=== PATIENT | male | born 1945 | race Caucasian/White ===

== ENCOUNTER → 2017-12-23 | Outpatient (CLI) | payer MEDICARE, OTHER ==
[~2017-12-23] MED LIST: AMARYL2 MG PO; CELEBREX100 MG PO; CELEBREX200 MG PO; COREG25 MG PO; COZAAR100 MG PO; DIGOXIN250 MCG PO; FISH OIL 1,0001 EAC2 PO; FISH OIL PO; GABAPENTIN100 MG PO; GLUCOPHAGE1000 MG PO; JANUMET 50-1,01 EACH PO; JENTADUETO 2.51 EAC1; JENTADUETO 2.51 EAC1 PO; JENTADUETO 2.51 EACH PO; LANOXIN250 MC1 PO; LANOXIN250 MCG PO; LASIX40 MG PO; LOMOTIL TABLET1 EACH PO; LOSARTAN POTAS100 MG PO; MECLIZINE HCL12.5 MG PO; MELOXICAM15 MG PO; METFORMIN HCL500 MG PO; MULTI-VITAMIN1 EACH PO; MULTIVITAMIN1 EAC1 PO; NEXIUM40 MG PO; NITROGLYCERIN SL; NITROSTAT0.4 MG; NORCO 10-325 T1 EACH PO; NORCO 5-325 TA1 EACH PO; PLAVIX75 MG PO; PROMETHAZINE HC25 M1 PO; REQUIP5 MG PO; ROPINIROLE HCL3 MG PO; SPIRONOLACTONE25 MG PO; TESTOSTERO200 MG/1 M IM; ULTRAM 50MG50 MG PO; VICODIN; VICODIN ES TAB1 EACH PO; Z REQUIP PO; Z.0.BENICAR40 MG PO; Z.0.COREG25 MG PO; Z.0.FISH OIL500 M1 PO; Z.0.GLIPIZIDE5 MG PO; Z.0.GLUCOPHAGE500 MG; Z.0.KLOR-CON 88 MEQ PO; Z.0.LASIX40 MG PO; Z.0.NEXIUM40 MG PO; Z.0.PLAVIX75 MG PO; Z.0.PROMETHAZINE HC2 PO; Z.0.SPIRONOLACTONE25 PO; Z.0.ZOCOR80 MG PO; Z.1.MECLIZINE HCL25 PO; Z.2.METFORMIN HCL500 PO; ZOCOR80 MG PO; [UNRECOGNIZED DRUG - OTHER]
--- NOTE | 2017-12-24 06:23 | Diagnostic Imaging Report ---
History: Neck pain radiating to right shoulder Comparison studies: None Technique: Axial images were obtained through the cervical region. Coronal and sagittal images reconstructed from the axial data. Intravenous contrast: None Findings: Atlantoaxial articulation: Degenerative changes given by decreased predental space, osteophyte formation and osteophytes. Alignment: Normal lordosis No scoliosis. Cervicomedullary junction: No abnormalities. Patent foramen magnum. Soft tissues: No paraspinal abnormalities. Atherosclerotic calcifications of the carotid bulbs, siphons and vertebral arteries. Vertebrae: No fractures, neoplasm or infection. Degenerative changes: C2-C3: Facet and uncinate process hypertrophy result in no significant canal stenosis and mild right foraminal narrowing . C3-4: Facet and uncinate process hypertrophy result in no significant canal stenosis, moderate right and mild left foraminal narrowing . C4-5: Decreased intervertebral space. Facet and uncinate process hypertrophy result in no significant canal stenosis, moderate right and mild left foraminal narrowing . C5-6: Obliterated intervertebral space and endplate sclerosis. Central disc osteophyte complex, facet and uncinate process hypertrophy result in no significant canal stenosis, severe right and moderate left foraminal narrowing . C6-7: Obliterated intervertebral space and endplate sclerosis. Central disc osteophyte complex, facet and uncinate process hypertrophy result in mild canal stenosis, moderate right and mild left foraminal narrowing . C7-T1: Patent spinal canal and foramina . IMPRESSION: 1. Severe right and moderate left degenerative foraminal narrowing at C5-6. 2. Moderate right and mild left foraminal narrowing at C3-4 and C6-7. 3. Disc degeneration more significant at C5-6 and C6-7. Other degenerative changes as described above. Signed by: DR Deo Rhoades M.D. on 12/24/2017 6:19 AM
== END ==
LOC: CT 14:01
PROVIDERS: ATTEND Physical Medicine & Rehabilitation Pain Medicine
DX: M54.12 Radiculopathy, cervical region (principal)
CPT/HCPCS: 72125

== ENCOUNTER → 2018-01-12 | Day surgery (SDC) | payer MEDICARE, OTHER ==
[2018-01-04 11:53] LABS: BASOPHILS # (AUTO) 0.1 (0.0-0.1); BASOPHILS % 0.9 % (0.0-1.0); EOSINOPHILS # (AUTO) 0.9 (0.0-0.4); EOSINOPHILS % 7.8 % (0.0-6.0); HEMATOCRIT 36.2 % (38.2-49.6); HEMOGLOBIN 11.8 g/dL (14.0-18.0); LYMPHOCYTES # (AUTO) 1.4 (1.0-3.2); LYMPHOCYTES % 12.6 % (18.0-39.1); MEAN CORPUSCULAR HGB CONC 32.6 g/dL (31-35); MEAN CORPUSCULAR VOLUME 92.1 fL (81-99); MONOCYTES # (AUTO) 1.1 (0.2-0.8); MONOCYTES % 10.3 % (4.4-11.3); NEUTROPHILS # (AUTO) 7.4 (2.1-6.9); NEUTROPHILS % 67.9 % (38.7-80.0); PLATELET COUNT 358 x10e3/uL (140-360); RED BLOOD COUNT 3.93 x10e6/uL (4.3-5.7); RED CELL DISTRIBUTION WIDTH 13.3 % (11.7-14.4)
[~2018-01-12] MED LIST changes: +DEXAMETHASONE SOD PHOS 10 MG/1 ML VIAL ONE; +FENTANYL CITRATE/PF 100MCG/2 ML INJ ONE; +FISH OIL 1,4001 EACH PO; +IOPAMIDOL 200 MG/ML 20 ML VIAL IT ONE; +LIDOCAINE HCL 1% 30ML-PF VIAL ONE; +LIDOCAINE HCL 2% LOCAL INJ 5 ML SDV VIAL INJ ONE; +MIDAZOLAM HCL 2 MG/2 ML VIAL ONE; +PROPOFOL IV EMULSION 10 MG/ML 20 ML VIAL ONE
--- OUTSIDE RECORDS SUMMARY | 2018-01-12 05:23 | XMS REPORT ---
Author Author [facility] Address Unknown Phone Unavailable Care Team Providers Care Toolman Name Role Phone ALAN BALDERAS Unavailable Unavailable ZAMBRANO, YUDY Unavailable Unavailable Problems This patient has no known problems. Allergies, Adverse Reactions, Alerts This patient has no known allergies or adverse reactions. Medications This patient has no known medications. Results Test Description Test Time Test Comments Text Results Atomic Results Result Comments CT CERVICAL SPINE WO [facility] [address] [address] Patient Name: ELA GUTIERREZ MR #: [id number] : 1945 Age/Sex: 72/M Req #: [id number] Adm Physician: Ordered by: ALAN BALDERAS MD Report # : [id number] Location: CT Room/Bed: Procedure: [id number] CT/CT CERVICAL SPINE WO Exam Date: 12/23/17 Exam Time: 1456 REPORT STATUS: Signed History: Neck pain radiating to right shoulder Comparison studies: None Technique: Axial images were obtained through the cervical region. Coronal and sagittal images reconstructed from the axial data. Intravenous contrast: None Findings: Atlantoaxial articulation: Degenerative changes given by decreased predental space, osteophyte formation and osteophytes. Alignment: Normal lordosis No scoliosis. Cervicomedullary junction: No abnormalities. Patent foramen magnum. Soft tissues: No paraspinal abnormalities. Atherosclerotic calcifications of the carotid bulbs, siphons and vertebral arteries. Vertebrae: No fractures, neoplasm or infection. Degenerative changes: C2-C3: Facet and uncinate process hypertrophy result in no significant canal stenosis and mild right foraminal narrowing . C3-4: Facet and uncinate process hypertrophy result in no significant canal stenosis, moderate right and mild left foraminal narrowing . C4-5: Decreased intervertebral space. Facet and uncinate process hypertrophy result in no significant canal stenosis, moderate right and mild left foraminal narrowing . C5-6: Obliterated intervertebral space and endplate sclerosis. Central disc osteophyte complex, facet and uncinate process hypertrophy result in no significant canal stenosis, severe right and moderate left foraminal narrowing . C6-7: Obliterated intervertebral space and endplate sclerosis. Central disc osteophyte complex, facet and uncinate process hypertrophy result in mild canal stenosis, moderate right and mild left foraminal narrowing . C7-T1: Patent spinal canal and foramina . IMPRESSION: 1. Severe right and moderate left degenerative foraminal narrowing at C5-6. 2. Moderate right and mild left foraminal narrowing at C3-4 and C6-7. 3. Disc degeneration more significant at C5-6 and C6-7. Other degenerative changes as described above. Signed by: DR Deo Rhoades M.D. on 12/24/2017 6:19 AM Dictated By: DEO SAAVEDRA MD 8 Transcribed By: RADHA on 12/24/17618 COPY TO: ALAN BALDERAS MD [facility] [address] [address] Patient Name: ELA GUTIERREZ MR #: [id number] : 1945 Age/Sex: 71/M Req #: [id number] Adm Physician: Ordered by: YUDY ZAMBRANO MD Report #: [id number] Location: [facility] Room/Bed: Procedure: [id number] DX/SHOULDER RIGHT COMPLETE Exam Date: 09/16/17 Exam Time: 1035 REPORT STATUS: Signed PROCEDURE: X- RAY RIGHT SHOULDER, COMPLETE COMPARISON: None. INDICATIONS: RIGHT SHOULDER PAIN FINDINGS: There are no fractures, dislocations, lytic or blastic lesions. The bones are well-mineralized. The soft-tissues are unremarkable. CONCLUSION: No acute radiographic abnormality. Dictated by: Ela Azar M.D. on 09/16/2017 at 11:39 Electronically approved by: Ela Azar M.D. on 09/16/2017 at 11:39 Dictated By: ELA AZAR MD [id number] Transcribed By: TRI on 09/16/17 1139 COPY TO: YUDY ZAMBRANO MD
== END | disposition home or self-care (01) ==
LOC: OR 05:22
PROVIDERS: ATTEND Physical Medicine & Rehabilitation Pain Medicine
DX: M47.22 Other spondylosis with radiculopathy, cervical region (principal); M47.816 Spondylosis without myelopathy or radiculopathy, lumbar region; M46.1 Sacroiliitis, not elsewhere classified; M54.16 Radiculopathy, lumbar region; G89.4 Chronic pain syndrome; B02.29 Other postherpetic nervous system involvement; E11.9 Type 2 diabetes mellitus without complications; I25.810 Atherosclerosis of coronary artery bypass graft(s) without angina pectoris; I25.2 Old myocardial infarction; I11.0 Hypertensive heart disease with heart failure; I50.9 Heart failure, unspecified; J45.909 Unspecified asthma, uncomplicated; Z01.810 Encounter for preprocedural cardiovascular examination; Z01.812 Encounter for preprocedural laboratory examination; Z79.02 Long term (current) use of antithrombotics/antiplatelets; Z95.810 Presence of automatic (implantable) cardiac defibrillator; Z95.5 Presence of coronary angioplasty implant and graft; Z95.1 Presence of aortocoronary bypass graft
CPT/HCPCS: 36415 ×2; 64479; 64480; 82948; 85025; 93005; J1100; J2001 ×2; J2250; Q9966; 77003

== ENCOUNTER → 2018-03-09 | Day surgery (SDC) | payer MEDICARE, OTHER ==
[2018-03-07 12:11] LABS: BASOPHILS # (AUTO) 0.1 (0.0-0.1); BASOPHILS % 0.8 % (0.0-1.0); EOSINOPHILS # (AUTO) 0.6 (0.0-0.4); EOSINOPHILS % 5.9 % (0.0-6.0); HEMATOCRIT 39.9 % (38.2-49.6); HEMOGLOBIN 13.5 g/dL (14.0-18.0); LYMPHOCYTES % 19.8 % (18.0-39.1); MEAN CORPUSCULAR HEMOGLOBIN 30.3 pg (28-32); MEAN CORPUSCULAR HGB CONC 33.8 g/dL (31-35); MEAN CORPUSCULAR VOLUME 89.5 fL (81-99); MONOCYTES % 9.4 % (4.4-11.3); NEUTROPHILS # (AUTO) 6.5 (2.1-6.9); NEUTROPHILS % 63.9 % (38.7-80.0); PLATELET COUNT 208 x10e3/uL (140-360); RED BLOOD COUNT 4.46 x10e6/uL (4.3-5.7); RED CELL DISTRIBUTION WIDTH 12.9 % (11.7-14.4)
== END | disposition home or self-care (01) ==
LOC: OR 06:06
PROVIDERS: ATTEND Physical Medicine & Rehabilitation Pain Medicine
DX: M47.22 Other spondylosis with radiculopathy, cervical region (principal); M47.817 Spondylosis without myelopathy or radiculopathy, lumbosacral region; M47.816 Spondylosis without myelopathy or radiculopathy, lumbar region; M54.16 Radiculopathy, lumbar region; M46.1 Sacroiliitis, not elsewhere classified; G89.4 Chronic pain syndrome; B02.29 Other postherpetic nervous system involvement; E11.9 Type 2 diabetes mellitus without complications; I25.810 Atherosclerosis of coronary artery bypass graft(s) without angina pectoris; I11.0 Hypertensive heart disease with heart failure; I50.9 Heart failure, unspecified; I25.2 Old myocardial infarction; J45.909 Unspecified asthma, uncomplicated; Z01.812 Encounter for preprocedural laboratory examination; Z79.02 Long term (current) use of antithrombotics/antiplatelets; Z95.810 Presence of automatic (implantable) cardiac defibrillator; Z95.1 Presence of aortocoronary bypass graft
CPT/HCPCS: 36415 ×2; 64479; 64480; 82948; 85025; J1100; J2001 ×2; J2250; Q9966; 77003

== ENCOUNTER 2018-03-23 19:54 | Inpatient (IN) | payer MEDICARE, OTHER ==
[~2018-03-23] VITALS: Ht 172.7 cm; Wt 77.6 kg
[~2018-03-23 19:54] MED LIST changes: -DEXAMETHASONE SOD PHOS 10 MG/1 ML VIAL ONE; -FENTANYL CITRATE/PF 100MCG/2 ML INJ ONE; -FISH OIL 1,4001 EACH PO; -IOPAMIDOL 200 MG/ML 20 ML VIAL IT ONE; -LIDOCAINE HCL 1% 30ML-PF VIAL ONE; -LIDOCAINE HCL 2% LOCAL INJ 5 ML SDV VIAL INJ ONE; -MIDAZOLAM HCL 2 MG/2 ML VIAL ONE; -PROPOFOL IV EMULSION 10 MG/ML 20 ML VIAL ONE
[2018-03-23] MEDS ORDERED: ALBUTEROL/IPRATROPIUM 3 ML NEB NEB ONE (20:00)
[2018-03-23 20:23] LABS: BASOPHILS # (AUTO) 0.1 (0.0-0.1); BASOPHILS % 0.7 % (0.0-1.0); EOSINOPHILS % 0.3 % (0.0-6.0); HEMATOCRIT 40.9 % (38.2-49.6); HEMOGLOBIN 14.4 g/dL (14.0-18.0); LYMPHOCYTES % 11.4 % (18.0-39.1); MEAN CORPUSCULAR HEMOGLOBIN 30.3 pg (28-32); MEAN CORPUSCULAR HGB CONC 35.2 g/dL (31-35); MEAN CORPUSCULAR VOLUME 85.9 fL (81-99); MONOCYTES % 11.1 % (4.4-11.3); NEUTROPHILS # (AUTO) 6.9 (2.1-6.9); NEUTROPHILS % 76.2 % (38.7-80.0); PLATELET COUNT 179 x10e3/uL (140-360); RED BLOOD COUNT 4.76 x10e6/uL (4.3-5.7); RED CELL DISTRIBUTION WIDTH 13.1 % (11.7-14.4)
--- NOTE | 2018-03-23 20:34 | Diagnostic Imaging Report ---
EXAMINATION: CHEST SINGLE (PORTABLE) INDICATION: Shortness of breath COMPARISON: None FINDINGS: TUBES and LINES: Sternal wires. The most superior sternal wire is disrupted. Left chest cardiac device with 2 leads over the heart LUNGS: Lungs are well inflated. There is no evidence of consolidative pneumonia PLEURA: There may be a small left pleural effusion. HEART AND MEDIASTINUM: Cardiomegaly with pulmonary vascular congestion. BONES AND SOFT TISSUES: No acute osseous lesion. Soft tissues are unremarkable. UPPER ABDOMEN: No free air under the diaphragm. IMPRESSION: Cardiomegaly with pulmonary vascular congestion. There may be a small left pleural effusion. Signed by: Dr. Faustino Amaro M.D. on 03/23/2018 8:30 PM
[2018-03-23 20:40] LABS: ALANINE AMINOTRANSFERASE 15 IU/L (0-55); ALBUMIN 3.4 g/dL (3.5-5.0); ALBUMIN/GLOBULIN RATIO 1.1 (0.8-2.0); ALKALINE PHOSPHATASE 65 IU/L (40-150); ANION GAP 13.5 mmol/L (8-16); BLOOD UREA NITROGEN 17 mg/dL (7-26); BUN/CREATININE RATIO 19 (6-25); CALCIUM 9.6 mg/dL (8.4-10.2); CARBON DIOXIDE 24 mmol/L (22-29); CHLORIDE 100 mmol/L (98-107); CREATINE KINASE 103 IU/L (30-200); CREATININE, SERUM 0.91 mg/dL (0.72-1.25); EST GLOMERULAR FILTRATION RATE > 60 ML/MIN (60-); GLUCOSE 255 mg/dL (74-118); POTASSIUM 3.5 mmol/L (3.5-5.1); SODIUM 134 mmol/L (136-145)
[2018-03-23] MEDS ORDERED: FISH OIL 1,4001 EACH PO (21:13)
[2018-03-23] MEDS ORDERED: ULTRAM 50MG50 MG PO (21:13)
[2018-03-23] MEDS ORDERED: DEXTROSE 50% SYRINGE 50 ML IV PRN (21:30)
[2018-03-23] MEDS: FUROSEMIDE INJ 10 MG/ML 4 ML VIAL IV SCH (21:50)
[2018-03-23 22:14] VITALS: BP 133/76
[2018-03-23 22:54] VITALS: BP 133/76
[2018-03-23 22:58] VITALS: BP 133/76
[2018-03-24 04:00] VITALS: BP 124/85
[2018-03-24] MEDS ORDERED: CARVEDILOL 12.5 MG TAB PO SCH (04:15)
[2018-03-24] MEDS ORDERED: NON-FORMULARY MEDICATION (Testosterone Cypionate 200 MG) IM SCH (04:15)
[2018-03-24] MEDS ORDERED: NITROGLYCERIN 0.4 MG SUBL SL PRN (04:15)
[2018-03-24] MEDS ORDERED: TRAMADOL HCL 50 MG TAB PO PRN (04:15)
[2018-03-24] MEDS: CARVEDILOL 12.5 MG TAB PO SCH ×3 (04:43→17:00)
[2018-03-24] MEDS: HYDROCODONE/APAP 10MG-325MG TAB PO PRN (04:43)
[2018-03-24 05:12] LABS: BASOPHILS # (AUTO) 0.1 (0.0-0.1); BASOPHILS % 0.6 % (0.0-1.0); EOSINOPHILS % 0.1 % (0.0-6.0); HEMATOCRIT 40.8 % (38.2-49.6); HEMOGLOBIN 14.2 g/dL (14.0-18.0); LYMPHOCYTES # (AUTO) 0.9 (1.0-3.2); LYMPHOCYTES % 7.4 % (18.0-39.1); MEAN CORPUSCULAR HEMOGLOBIN 30.2 pg (28-32); MEAN CORPUSCULAR HGB CONC 34.8 g/dL (31-35); MEAN CORPUSCULAR VOLUME 86.8 fL (81-99); MONOCYTES # (AUTO) 1.4 (0.2-0.8); MONOCYTES % 11.3 % (4.4-11.3); NEUTROPHILS # (AUTO) 10.2 (2.1-6.9); NEUTROPHILS % 80.4 % (38.7-80.0); PLATELET COUNT 190 x10e3/uL (140-360); RED CELL DISTRIBUTION WIDTH 13.1 % (11.7-14.4)
[2018-03-24] MEDS ORDERED: HYDROXYZINE HCL 10 MG TAB PO PRN (05:15)
[2018-03-24 05:33] LABS: ALANINE AMINOTRANSFERASE 16 IU/L (0-55); ALBUMIN 3.3 g/dL (3.5-5.0); ALBUMIN/GLOBULIN RATIO 1.1 (0.8-2.0); ALKALINE PHOSPHATASE 62 IU/L (40-150); ANION GAP 13.4 mmol/L (8-16); BLOOD UREA NITROGEN 15 mg/dL (7-26); BUN/CREATININE RATIO 18 (6-25); CALCIUM 9.1 mg/dL (8.4-10.2); CARBON DIOXIDE 24 mmol/L (22-29); CHLORIDE 97 mmol/L (98-107); CREATININE, SERUM 0.85 mg/dL (0.72-1.25); EST GLOMERULAR FILTRATION RATE > 60 ML/MIN (60-); GLUCOSE 176 mg/dL (74-118); POTASSIUM 3.4 mmol/L (3.5-5.1); SODIUM 131 mmol/L (136-145)
[2018-03-24 05:36] LABS: CREATINE KINASE MB 0.9 ng/mL (0-5.0)
[2018-03-24] MEDS: INSULIN REGULAR, HUMAN 100 UNIT/1 ML 3ML VIAL SQ SCH ×4 (07:30→21:29)
[2018-03-24] MEDS: METFORMIN HCL 500 MG TAB PO SCH ×2 (08:00→17:00)
[2018-03-24 08:37] VITALS: BP 99/58
[2018-03-24] MEDS ORDERED: FISH OIL PO SCH (09:00)
[2018-03-24] MEDS: ROPINIROLE HCL 2 MG TAB PO SCH ×2 (09:00→17:00)
[2018-03-24] MEDS ORDERED: OMEGA PO SCH (09:00)
[2018-03-24] MEDS ORDERED: NON-FORMULARY MEDICATION (Celecoxib (Celebrex) 200 MG) PO SCH (09:00)
[2018-03-24] MEDS: FUROSEMIDE INJ 10 MG/ML 4 ML VIAL IV SCH ×2 (09:00→17:00)
[2018-03-24] MEDS: CLOPIDOGREL BISULFATE 75 MG TAB PO SCH (09:00)
[2018-03-24] MEDS: ROPINIROLE HCL 1 MG TAB PO SCH ×2 (09:00→17:00)
[2018-03-24] MEDS: SPIRONOLACTONE 25 MG TAB PO SCH (09:00)
[2018-03-24] MEDS ORDERED: DHA PO SCH (09:00)
[2018-03-24] MEDS: OMEGA 3 POLYUNSAT FATTY ACIDS 1000 MG SOFTGEL PO SCH (09:00)
[2018-03-24] MEDS ORDERED: [UNRECOGNIZED DRUG - OTHER] PO SCH (09:00)
[2018-03-24] MEDS ORDERED: EPA PO SCH (09:00)
[2018-03-24] MEDS ORDERED: NON-FORMULARY MEDICATION (Metformin Hcl (Glucophage) 1,000 MG) PO SCH (09:00)
[2018-03-24] MEDS ORDERED: ROPINIROLE HCL 5 MG PO SCH (09:00)
[2018-03-24] MEDS: CELECOXIB 200 MG CAP PO SCH (09:00)
[2018-03-24] MEDS ORDERED: ALBUTEROL/IPRATROPIUM 3 ML NEB NEB PRN ×2 (10:00)
--- NOTE | 2018-03-24 13:04 | Consultation ---
DATE OF CONSULTATION: March 24, 2018 CARDIOLOGY CONSULTATION REASON FOR CONSULTATION: CHF. HISTORY OF PRESENT ILLNESS: This is a 72-year-old male well known to the practice with a history of CAD status post PCI and CABG, also status post ICD placement, CHF, diabetes, hyperlipidemia, asthma, degenerative joint disease. Patient presents to the [facility] ER with complaints of shortness of breath and cough, wheezing for about 7 days or so and decided to come to the ER for further evaluation. Labs were drawn and he was noted with a BNP over 1000. Cardiology was consulted. Patient has been started on diuretic therapy, reports that he is starting to feel better. Denies any chest pains. Reports that he has been compliant with his medications. PAST MEDICAL HISTORY 1. CAD status post PCI and CABG in 2001. 2. Hypertension. 3. CHF. 4. Hyperlipidemia. 5. Hypertension. 6. Asthma. 7. Degenerative joint disease. PAST SURGICAL HISTORY 1. Left knee. 2. Thyroid lobectomy. 3. Tonsillectomy. 4. Left and right shoulders. 5. Cholecystectomy. 6. CABG x2. 7. History of PCI to the LAD and distal RCA. SOCIAL HISTORY: He is . Denies any alcohol or tobacco use. 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 FAMILY HISTORY: Positive for CAD and diabetes. ALLERGIES: BENADRYL, DOXYCYCLINE, THEOPHYLLINE. HOME MEDICATIONS 1. Carvedilol 12.5 b.i.d. 2. Plavix 75 mg once a day. 3. Lasix 40 mg b.i.d. 4. Metformin 1000 mg b.i.d. 5. Requip 5 mg b.i.d. 6. Simvastatin 80 mg daily. 7. Spironolactone 25 mg daily. REVIEW OF SYSTEMS GENERAL: Denies any weight gain, weight changes. Positive for fatigue. No fevers or chills, night sweats. SKIN-CANTRELL: No rashes, bruises. HEENT: No head trauma. No nausea, vomiting, vision changes. No blurred vision, double vision. No hearing loss or hearing aids. No stuffiness, epistaxis. No sore throat, hoarseness, swollen neck. CARDIAC: Denies any chest pain. Positive for dyspnea on exertion. Positive for slight lower extremity edema. Denies any orthopnea, PND. RESPIRATORY: Positive for shortness of breath, wheezing, coughing nonproductive. No hemoptysis. GI: Good appetite. No nausea, vomiting, diarrhea, constipation. No melena, hematemesis. URINARY: Positive for frequency, nocturia, urgency. VASCULAR: Positive for the leg edema. MUSCULOSKELETAL: Positive for muscle weakness throughout. Positive for joint pains, back pains. NEUROLOGIC: Denies any weakness, paralysis, fainting, blackouts, seizures. HEMATOLOGY: Positive for easy bruising. Denies any bleeding. ENDOCRINE: Denies any heat or cold intolerance, any excessive sweating, polyuria, polydipsia, polyphagia. PHYSICAL EXAMINATION VITAL SIGNS: Current temperature 98.4, pulse 96, respiratory rate 18, blood pressure 98/58, pulse ox 98% on room air. Height 68 inches, weight 171 pounds. GENERAL: Appears stated age. No acute distress. SKIN-CANTRELL: No rashes or bruises, sores noted. HEENT: Normocephalic. Pupils equal and reactive. Extraocular motor intact. Oral mucosa pink. Trachea midline. No JVD, no carotid bruit, no thyromegaly. CARDIOVASCULAR: Regular rate and rhythm. ICD to the left chest wall. LUNGS: Bilateral breath sounds with crackles at bases. No wheezing noted. ABDOMEN: Soft, nontender, nondistended. MUSCULOSKELETAL: 4/5 muscle strength throughout. VASCULAR: +2 radial pulses, +1 DP/PT pulses. NEUROLOGIC: Cranial nerves 2-12 seem intact. LAB-CANTRELL: Sodium 134, potassium 3.5, chloride 100, bicarb 24, BUN 17, creatinine 0.9. BNP initially 1025, next 808. Troponin 0.2 and repeat 0.17. White count 9, hemoglobin 14, hematocrit 40, platelets 179. Chest x-ray showing pulmonary vascular congestion with small left pleural effusion. EKG sinus rhythm with a left bundle branch block. ASSESSMENT 1. Sexek-eb-vixzaxy systolic heart failure. 2. Coronary artery disease status post coronary artery bypass graft/percutaneous coronary intervention. 3. Hypertension. 4. Hyperlipidemia. 5. Diabetes. 6. Degenerative joint disease. PLAN-CANTRELL 1. The patient presents with apthj-jp-rhwybwn systolic heart failure on Lasix therapy, is diuresing well. Reports feels improving. 2. Continue Lasix therapy to volume optimize. 3. Continue heart failure therapy. 4. Continue aspirin, Plavix, statin, beta sarita. 5. Tele monitoring. 6. Will follow patient progression and adjust cardiac therapy as course dictates. Thank you very much for this consult. Dictated by: Bairon Garcia NP Job#: [id number]
[2018-03-24 13:07] VITALS: BP 91/53
[2018-03-24 15:05] LABS: CREATINE KINASE MB 1.5 ng/mL (0-5.0)
[2018-03-24 16:09] VITALS: BP 88/50
[2018-03-24 20:00] VITALS: BP 90/52
[2018-03-24] MEDS: SIMVASTATIN 80 MG TAB PO SCH (21:29)
[2018-03-24 21:30] VITALS: BP 90/52
[2018-03-25 00:38] VITALS: BP 91/51
[2018-03-25] MEDS: INSULIN REGULAR, HUMAN 100 UNIT/1 ML 3ML VIAL SQ SCH ×4 (07:30→20:52)
[2018-03-25 07:43] VITALS: BP 127/66
[2018-03-25] MEDS: METFORMIN HCL 500 MG TAB PO SCH ×2 (08:45→18:31)
[2018-03-25] MEDS: ROPINIROLE HCL 2 MG TAB PO SCH ×3 (09:00→20:52)
[2018-03-25] MEDS: SPIRONOLACTONE 25 MG TAB PO SCH (09:09)
[2018-03-25] MEDS: OMEGA 3 POLYUNSAT FATTY ACIDS 1000 MG SOFTGEL PO SCH (09:09)
[2018-03-25] MEDS: CELECOXIB 200 MG CAP PO SCH (09:09)
[2018-03-25] MEDS: FUROSEMIDE INJ 10 MG/ML 4 ML VIAL IV SCH (09:09)
[2018-03-25] MEDS: CARVEDILOL 12.5 MG TAB PO SCH ×2 (09:30→16:34)
[2018-03-25] MEDS: CLOPIDOGREL BISULFATE 75 MG TAB PO SCH (09:30)
[2018-03-25] MEDS ORDERED: POTASSIUM CHLORIDE 10 MEQ TABCR PO ONE (09:30)
[2018-03-25 11:59] VITALS: BP 90/51
[2018-03-25 15:28] VITALS: BP 90/51
[2018-03-25] MEDS: FUROSEMIDE 40 MG TAB PO SCH (18:31)
[2018-03-25 20:00] VITALS: BP 95/50
[2018-03-25 20:52] VITALS: BP 95/50
[2018-03-25] MEDS: ROPINIROLE HCL 1 MG TAB PO SCH (20:52)
[2018-03-25] MEDS: SIMVASTATIN 80 MG TAB PO SCH (20:52)
[2018-03-26 04:00] VITALS: BP 100/55
[2018-03-26] MEDS: HYDROCODONE/APAP 10MG-325MG TAB PO PRN (05:04)
[2018-03-26] MEDS: FUROSEMIDE 40 MG TAB PO SCH (05:04)
[2018-03-26] MEDS: INSULIN REGULAR, HUMAN 100 UNIT/1 ML 3ML VIAL SQ SCH ×2 (07:30→11:30)
[2018-03-26 07:45] LABS: BASOPHILS % 0.4 % (0.0-1.0); EOSINOPHILS # (AUTO) 0.2 (0.0-0.4); EOSINOPHILS % 1.6 % (0.0-6.0); HEMATOCRIT 41.8 % (38.2-49.6); LYMPHOCYTES # (AUTO) 1.3 (1.0-3.2); LYMPHOCYTES % 13.4 % (18.0-39.1); MEAN CORPUSCULAR HEMOGLOBIN 29.4 pg (28-32); MEAN CORPUSCULAR HGB CONC 33.5 g/dL (31-35); MEAN CORPUSCULAR VOLUME 87.8 fL (81-99); MONOCYTES # (AUTO) 1.3 (0.2-0.8); MONOCYTES % 13.6 % (4.4-11.3); NEUTROPHILS # (AUTO) 6.9 (2.1-6.9); NEUTROPHILS % 70.7 % (38.7-80.0); PLATELET COUNT 172 x10e3/uL (140-360); RED BLOOD COUNT 4.76 x10e6/uL (4.3-5.7)
[2018-03-26 08:29] LABS: ANION GAP 14.5 mmol/L (8-16); BLOOD UREA NITROGEN 22 mg/dL (7-26); BUN/CREATININE RATIO 26 (6-25); CALCIUM 9.4 mg/dL (8.4-10.2); CARBON DIOXIDE 29 mmol/L (22-29); CHLORIDE 96 mmol/L (98-107); CREATININE, SERUM 0.85 mg/dL (0.72-1.25); EST GLOMERULAR FILTRATION RATE > 60 ML/MIN (60-); GLUCOSE 151 mg/dL (74-118); POTASSIUM 3.5 mmol/L (3.5-5.1); SODIUM 136 mmol/L (136-145)
[2018-03-26 08:37] VITALS: BP 108/61
[2018-03-26] MEDS: ROPINIROLE HCL 2 MG TAB PO SCH (09:00)
[2018-03-26] MEDS: ROPINIROLE HCL 1 MG TAB PO SCH (09:00)
[2018-03-26] MEDS: METFORMIN HCL 500 MG TAB PO SCH (09:04)
[2018-03-26] MEDS: CELECOXIB 200 MG CAP PO SCH (09:04)
[2018-03-26] MEDS: SPIRONOLACTONE 25 MG TAB PO SCH (09:04)
[2018-03-26] MEDS: CARVEDILOL 12.5 MG TAB PO SCH (09:06)
[2018-03-26] MEDS: CLOPIDOGREL BISULFATE 75 MG TAB PO SCH (09:06)
[2018-03-26] MEDS: OMEGA 3 POLYUNSAT FATTY ACIDS 1000 MG SOFTGEL PO SCH (09:06)
[2018-03-26] MEDS ORDERED: POTASSIUM CHLORIDE 10 MEQ TABCR PO ONE (10:00)
[2018-03-26 11:14] VITALS: BP 108/61
[2018-03-26 12:20] VITALS: BP 102/52
== END 2018-03-26 13:04 | disposition home or self-care (01) | DRG 293 ==
LOC: ER 19:54 → ERHOLD 21:21 → MED/SURG 21:40
DX: I11.0 Hypertensive heart disease with heart failure (principal); I50.23 Acute on chronic systolic (congestive) heart failure; I25.10 Atherosclerotic heart disease of native coronary artery without angina pectoris; Z95.5 Presence of coronary angioplasty implant and graft; E78.5 Hyperlipidemia, unspecified; J45.909 Unspecified asthma, uncomplicated; M19.90 Unspecified osteoarthritis, unspecified site; E11.9 Type 2 diabetes mellitus without complications; Z95.1 Presence of aortocoronary bypass graft; Z79.4 Long term (current) use of insulin
CPT/HCPCS: 36415; 71045; 80048; 80053; 82550; 82553; 82948; 83880; 84484; 85025; 93005; 94640; 99284; J1940

== ENCOUNTER 2018-05-17 19:08 | Emergency (ER) | payer MEDICARE, OTHER ==
[~2018-05-17] VITALS: Ht 172.7 cm; Wt 77.6 kg
[~2018-05-17 19:08] MED LIST changes: +FISH OIL 1,4001 EACH PO
[2018-05-17 19:52] LABS: BASOPHILS # (AUTO) 0.1 (0.0-0.1); BASOPHILS % 0.8 % (0.0-1.0); EOSINOPHILS # (AUTO) 0.3 (0.0-0.4); LYMPHOCYTES # (AUTO) 1.5 (1.0-3.2); LYMPHOCYTES % 18.7 % (18.0-39.1); MEAN CORPUSCULAR HEMOGLOBIN 30.2 pg (28-32); MEAN CORPUSCULAR HGB CONC 34.3 g/dL (31-35); MEAN CORPUSCULAR VOLUME 87.9 fL (81-99); MONOCYTES # (AUTO) 0.9 (0.2-0.8); MONOCYTES % 11.4 % (4.4-11.3); NEUTROPHILS # (AUTO) 5.2 (2.1-6.9); NEUTROPHILS % 64.7 % (38.7-80.0); PLATELET COUNT 264 x10e3/uL (140-360); RED BLOOD COUNT 3.98 x10e6/uL (4.3-5.7); RED CELL DISTRIBUTION WIDTH 14.3 % (11.7-14.4)
[2018-05-17 20:01] LABS: INR 1.05; PROTHROMBIN TIME 12.9 seconds (11.9-14.5)
[2018-05-17 20:02] LABS: PARTIAL THROMBOPLASTIN TIME 33.8 seconds (23.8-35.5)
[2018-05-17 20:08] LABS: ALANINE AMINOTRANSFERASE 12 IU/L (0-55); ALBUMIN 3.3 g/dL (3.5-5.0); ALBUMIN/GLOBULIN RATIO 1.1 (0.8-2.0); ALKALINE PHOSPHATASE 81 IU/L (40-150); ANION GAP 13.6 mmol/L (8-16); BLOOD UREA NITROGEN 18 mg/dL (7-26); BUN/CREATININE RATIO 21 (6-25); CALCIUM 9.5 mg/dL (8.4-10.2); CARBON DIOXIDE 27 mmol/L (22-29); CHLORIDE 102 mmol/L (98-107); CREATINE KINASE 47 IU/L (30-200); CREATININE, SERUM 0.84 mg/dL (0.72-1.25); EST GLOMERULAR FILTRATION RATE > 60 ML/MIN (60-); GLUCOSE 169 mg/dL (74-118); POTASSIUM 3.6 mmol/L (3.5-5.1); SODIUM 139 mmol/L (136-145)
--- NOTE | 2018-05-17 20:31 | Diagnostic Imaging Report ---
EXAMINATION: CHEST 2 VIEWS INDICATION: \S\CHEST PAIN X1 HR COMPARISON: Chest x-ray 03/23/2018. 01/17/2017. FINDINGS: PA and lateral views TUBES and LINES: Left-sided ICD with 2 leads. Median sternotomy wires and mediastinal clips are present. Fracture of the first and second wires are unchanged. LUNGS: Lungs are well inflated. There are bibasilar atelectasis. There is perihilar interstitial opacities, consistent with interstitial edema. PLEURA: No pleural effusion or pneumothorax. HEART AND MEDIASTINUM: Cardiac size is mildly enlarged. There are atherosclerotic calcifications within the aorta. BONES AND SOFT TISSUES: No acute osseous lesion. Moderate degenerative changes in bilateral glenohumeral joints. Soft tissues are unremarkable. UPPER ABDOMEN: No free air under the diaphragm. IMPRESSION: Mild cardiomegaly with interstitial edema. Signed by: Dr. Denilson Mcguire M.D. on 05/17/2018 8:28 PM
[2018-05-17] MEDS ORDERED: ACETAMINOPHEN 325 MG TAB ONE (23:08)
[2018-05-17] MEDS ORDERED: ACETAMINOPHEN 325 MG TAB PO PRN (23:15)
[2018-05-18] MEDS ORDERED: ASPIRIN 81 MG CHEW TAB PO ONE (00:15)
[2018-05-18] MEDS ORDERED: MORPHINE SULFATE 2 MG/ML SYR IV PRN (00:45)
[2018-05-18] MEDS ORDERED: ONDANSETRON HCL INJ 2 MG/ML VIAL IV PRN (00:45)
[2018-05-18 05:01] LABS: CREATINE KINASE MB 1.1 ng/mL (0-5.0)
[2018-05-18] MEDS ORDERED: ASPIRIN 81 MG ENTERIC COATED PO SCH (09:00)
== END 2018-05-18 08:29 | disposition home or self-care (01) ==
LOC: ER 19:08 → UNDOADMOB 05-18 00:13 → ERHOLD 05-18 00:13 → ER 05-18 08:29
DX: R07.9 Chest pain, unspecified (principal); I20.9 Angina pectoris, unspecified
CPT/HCPCS: 36415; 71046; 80053; 82550; 82553; 84484; 85025; 85610; 85730; 93005; 99284; J2270

== ENCOUNTER → 2018-12-07 | Day surgery (SDC) | payer MEDICARE ==
[2018-11-14 11:32] LABS: BASOPHILS # (AUTO) 0.1 (0.0-0.1); BASOPHILS % 0.8 % (0.0-1.0); EOSINOPHILS # (AUTO) 0.3 (0.0-0.4); EOSINOPHILS % 3.1 % (0.0-6.0); HEMATOCRIT 41.9 % (38.2-49.6); HEMOGLOBIN 13.9 g/dL (14.0-18.0); LYMPHOCYTES # (AUTO) 1.7 (1.0-3.2); LYMPHOCYTES % 16.1 % (18.0-39.1); MEAN CORPUSCULAR HEMOGLOBIN 30.3 pg (28-32); MEAN CORPUSCULAR HGB CONC 33.2 g/dL (31-35); MEAN CORPUSCULAR VOLUME 91.3 fL (81-99); MONOCYTES # (AUTO) 1.1 (0.2-0.8); MONOCYTES % 10.3 % (4.4-11.3); NEUTROPHILS # (AUTO) 7.5 (2.1-6.9); NEUTROPHILS % 69.3 % (38.7-80.0); PLATELET COUNT 268 x10e3/uL (140-360); RED BLOOD COUNT 4.59 x10e6/uL (4.3-5.7); RED CELL DISTRIBUTION WIDTH 13.4 % (11.7-14.4)
[~2018-12-07] MED LIST changes: +FENTANYL CITRATE/PF 100MCG/2 ML INJ ONE; +IOPAMIDOL 200 MG/ML 20 ML VIAL IT ONE; +LIDOCAINE HCL 1% 30ML-PF VIAL ONE; +LIDOCAINE HCL 2% LOCAL INJ 5 ML SDV VIAL INJ ONE; +MIDAZOLAM HCL 2 MG/2 ML VIAL ONE; +PHENYLEPHRINE HCL 1% 10 MG/ML VIAL ONE; +PROPOFOL IV EMULSION 10 MG/ML 20 ML VIAL ONE; +TRIAMCINOLONE ACET 40 MG/ML VIAL ONE
--- OUTSIDE RECORDS SUMMARY | 2018-12-07 05:17 | XMS REPORT | Continuity of Care Document ---
Author Author [facility] Interface Address Unknown Phone Unavailable Problems Problem Status Onset Date Classification Date Reported Comments Source CHEST PAIN, UNCONTROLLED DIABETES MELLIT Active 11/01/2017 [facility] SHORTNESS OF BREATH Active 11/01/2017 [facility] Final: Chest pain, unspecified 11/06/2017 [facility] CHF (<span ID="[id number]">Confirmed</span>) Resolved Problem 11/06/2017 [facility] CAD (<span ID="[id number]">Confirmed</span>) Resolved Problem 11/06/2017 [facility] Diabetes mellitus Resolved Problem 11/06/2017 [facility] Thyroid cancer Resolved Problem 11/06/2017 [facility] Pure hypercholesterolemia Active Problem 10/18/2017 Est[facility] Glass Acute on chronic systolic congestive heart failure Active Problem 10/18/2017 Estelle Glass Type 2 diabetes mellitus with complication, without long-term current use of insulin Active Problem 10/18/2017 Estelle Glass 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 Active Diagnosis 10/18/2017 Estelle Glass Angina at rest Active Problem 10/18/2017 Estelle Glass AICD present Active Problem 10/18/2017 Estelle Glass Chronic systolic congestive heart failure Active Problem 10/18/2017 Estelle Glass Coronary artery disease involving coronary bypass graft of tangirnaq heart, angina presence unspecified Active Problem 10/18/2017 Estelle Glass Type 2 diabetes mellitus without complications Active Problem 10/18/2017 Estelle 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25 mg oral capsule 1.25 mg, PO, Daily, # 30 cap, 0 Refill(s), Pharmacy: [place] [id number] Active 11/03/2017 [facility] 24 HR Isosorbide Mononitrate 30 MG Extended Release Tablet [Imdur] 30 mg=1 tab, PO, QAM, # 30 tab, 0 Refill(s), Pharmacy: [place] [id number] Active 11/03/2017 [facility] aspirin 81 mg tablet, enteric coated 81 mg=1 tab, PO, Daily, 0 Refill(s) Active 11/03/2017 [facility] Insulin Lispro 15 unit, 0.15 mL, Route: SUB-Q, Drug form: SOLN, ONCE, Dosing Weight 73.955, kg, Start date: 11/02/17 21:37:00 [employer], Stop date: 11/02/17 21:37:00 CSTNotes: Roll in palms of hands gently; Do not shake `vigorously. (Same as: Humalog ) "Single Patient Use Only " WASTE: F/P - Black; E - Municipal Trash Bin Stable for 28 days at room temperature. Expires in days from Date Inactive 11/03/2017 [facility] Requip 5 mg, 2.5 tab, Route: PO, Drug form: TAB, [id number], Dosing Weight 73.955, kg, Start date: 11/02/17 17:00:00 [employer], Duration: 30 day, Stop date: 12/02/17 9:00:00 CSTNotes: (Same as: Requip) No Longer Active 11/02/2017 [facility] 24 HR Isosorbide Mononitrate 30 MG Extended Release Tablet [Imdur] 30 mg=1 tab, PO, QAM, # 30 tab, 0 Refill(s), Pharmacy: [place] [id number] Active 11/02/2017 [facility] ropinirole 5 MG Oral Tablet [Requip] 5 mg=1 tab, PO, BID, # 270 tab, 0 Refill(s) Active 11/02/2017 [facility] Magnesium Sulfate 1 gm, 100 mL, Route: IVPB, Drug form: INJ, ONCE, Dosing Weight 73.955, kg, Start date: 11/02/17 10:00:00 [employer], Stop date: 11/02/17 10:00:00 CSTNotes: WASTE: F/P - Sink; E - Municipal Trash Bin Inactive 11/02/2017 [facility] Spironolactone 50 mg, 1 tab, Route: PO, Drug form: TAB, Daily, Dosing Weight 73.955, kg, Start date: 11/02/17 9:00:00 [employer], Duration: 30 day, Stop date: 12/01/17 9:00:00 CSTNotes: (Same As: Aldactone) No Longer Active 11/02/2017 [facility] Fish Oil 1,000 mg, 1 cap, Route: PO, Drug form: CAP, Daily, Dosing Weight 73.955, kg, Start date: 11/02/17 9:00:00 [employer], Duration: 30 day, Stop date: 12/01/17 9:00:00 CSTNotes: (Same as: MaxEPA, [place] 3 fish oil ) Non-Formulary Drug No Longer Active 11/02/2017 [facility] Lasix 40 mg, 1 tab, Route: PO, Drug form: TAB, Daily, Dosing Weight 73.955, kg, Start date: 11/02/17 9:00:00 [employer], Duration: 30 day, Stop date: 12/01/17 9:00:00 CSTNotes: (Same as: Lasix) May cause GI upset. Give with food or milk. No Longer Active 11/02/2017 [facility] Streptococcus pneumoniae serotype 1 capsular antigen diphtheria [id number] protein conjugate vaccine / Streptococcus pneumoniae serotype 14 capsular antigen diphtheria [id number] protein conjugate vaccine / Streptococcus pneumoniae serotype 18C capsular antigen d 0.5 mL, Route: IM, Drug Form: INJ, Daily, Start date: 11/02/17 9:00:00 [employer], Stop date: 11/02/17 15:00:00 CSTNotes: Shake well prior to use (Same as: Prevnar 13) Inactive 11/02/2017 [facility] Plavix 75 mg, 1 tab, Route: PO, Drug form: TAB, Daily, Dosing Weight 73.955, kg, Start date: 11/02/17 9:00:00 [employer], Duration: 30 day, Stop date: 12/01/17 9:00:00 CSTNotes: (Same As: Plavix) No Longer Active 11/02/2017 [facility] Coreg 25 mg, 2 tab, Route: PO, Drug form: TAB, BID, Dosing Weight 73.955, kg, Start date: 11/02/17 9:00:00 [employer], Duration: 30 day, Stop date: 12/01/17 21:00:00 CSTNotes: Give with food. (Same As: Coreg) No Longer Active 11/02/2017 [facility] influenza virus vaccine, inactivated 0.5 mL, Route: IM, Drug Form: SUSP, Daily, Start date: 11/02/17 9:00:00 [employer], Stop date: 11/02/17 15:00:00 CSTNotes: (Same as: Fluzone Quadrivalent, Fluarix Quadrivalent) For 3 years of age and older (0.5 mL IM) Shake well before use Inactive 11/02/2017 [facility] Nitroglycerin 0.4 MG Sublingual Tablet [Nitrostat] 0.4 mg, 1 tab, Route: SL, Drug form: TAB, Q5Min, Dosing Weight 73.955, kg, PRN Chest Pain, Start date: 11/02/17 8:22:00 [employer], Duration: 30 day, Stop date: 12/02/17 8:21:00 CSTNotes: (Same as:Nitroquick, Nitrostat) "Do Not Crush" Sublingual tablet No Longer Active 11/02/2017 [facility] Centrum Silver Men's 1 tab, PO, Daily, 0 Refill(s) Active 11/02/2017 [facility] Testosterone See Instructions, 2,000 mg IM every two weeks, 0 Refill(s) Active 11/02/2017 [facility] Nitroglycerin 0.4 MG Sublingual Tablet [Nitrostat] See Instructions, PRN Chest Pain, 1 tab SL prn per patient, 0 Refill(s) Active 11/02/2017 [facility] Acetaminophen 325 MG / Hydrocodone Bitartrate 10 MG Oral Tablet [[place] 10/325] See Instructions, 1 tab PO prn per patient, 0 Refill(s) Active 11/02/2017 [facility] Lasix 40 mg, PO, Daily, 0 Refill(s) Active 11/02/2017 [facility] Spironolactone 25 mg=2 tab, PO, Daily, # 60 tab, 0 Refill(s) Active 11/02/2017 [facility] Celebrex 200 mg, PO, Daily, 0 Refill(s) Active 11/02/2017 [facility] Plavix 75 mg, PO, Daily, 0 Refill(s) Active 11/02/2017 [facility] Coreg 25 mg, PO, BID, 0 Refill(s) Active 11/02/2017 [facility] Metformin 500 mg, PO, BID, 0 Refill(s) Active 11/02/2017 [facility] Fish Oil 1,000 mg, PO, Daily, 0 Refill(s) Active 11/02/2017 [facility] Insulin Lispro 3 unit, 0.03 mL, Route: SUB-Q, Drug form: SOLN, Bedtime, Dosing Weight 72.273, kg, PRN Blood Glucose Results, Start date: 11/02/17 1:56:00 [employer], Duration: 30 day, Stop date: 12/02/17 1:55:00 CSTNotes: Ro ll in palms of hands gently; Do not shake `vigorously. (Same as: Humalog ) "Single Patient Use Only " WASTE: F/P - Black; E - Municipal Trash Bin Stable for 28 days at room temperature. Expires in days from Date No Longer Active 11/02/2017 [facility] Insulin Glargine 14 unit, 0.14 mL, Route: SUB-Q, Drug form: SOLN, ONCE, Dosing Weight 72.273, kg, Priority: NOW, Start date: 11/02/17 1:56:00 [employer], Stop date: 11/02/17 1:56:00 CSTNotes: (Same as: Lantus) Do not hold insulin without contacting prescriber WASTE: F/P - Black; E - Municipal Trash Bin "single patient use only" Inactive 11/02/2017 [facility] Glucagon 1 mg, Route: IM, Drug form: PDR/INJ, PRN, Dosing Weight 72.273, kg, PRN Blood Glucose Results, Start date: 11/02/17 1:56:00 [employer], Duration: 30 day, Stop date: 12/02/17 1:55:00 [employer] No Longer Active 11/02/2017 [facility] Dextrose 50% Syringe 12.5 gm, 25 mL, Route: IVP, Drug Form: INJ, Dosing Weight 72.273, kg, PRN, PRN Blood Glucose Results, Start date: 11/02/17 1:56:00 [employer], Duration: 30 day, Stop date: 12/02/17 1:55:00 [employer] No Longer Active 11/02/2017 [facility] Aspirin 81 mg, 1 tab, Route: PO, Drug form: ECTAB, Daily, Dosing Weight 72.273, kg, Priority: STAT, Start date: 11/02/17 1:36:00 [employer], Duration: 30 day, Stop date: 12/01/17 9:00:00 CSTNotes: Do not crush or chew. (Same As: Ecotrin) No Longer Active 11/02/2017 [facility] Acetaminophen 325 MG / Hydrocodone Bitartrate 5 MG Oral Tablet 2 tab, Route: PO, Drug Form: TAB, Dosing Weight 72.273, kg, Q4H, PRN Pain Score 7-10, Start date: 11/02/17 1:35:00 [employer], Duration: 30 day, Stop date: 12/02/17 1:34:00 CSTNotes: (Same as: [place] 325/5) Do not exceed 4gm/day of acetaminophen. No Longer Active 11/02/2017 [facility] Morphine 2 mg, 1 mL, Route: IVP, Drug form: SOLN, Q4H, Dosing Weight 72.273, kg, PRN Pain Score 7-10, Start date: 11/02/17 1:35:00 [employer], Duration: 30 day, Stop date: 12/02/17 1:34:00 [employer] No Longer Active 11/02/2017 [facility] Sodium Chloride 0.9% IV 1,000 mL 1,000 mL, Rate: 50 ml/hr, Infuse over: 20 hr, Route: IV, Dosing Weight 72.273 kg, Total Volume: 1,000, Start date: 11/02/17 1:35:00 [employer], Duration: 30 day, Stop date: 12/02/17 1:34:00 [employer], 1.86, m2 No Longer Active 11/02/2017 [facility] Ondansetron 4 mg, 2 mL, Route: IVP, Drug form: INJ, Q6H, Dosing Weight 72.273, kg, PRN Nausea & Vomiting, Start date: 11/02/17 1:35:00 [employer], Duration: 30 day, Stop date: 12/02/17 1:34:00 CSTNotes: (Same as: Zofran) MEDICATION WASTE Product Size: 4 mg Product Wasted: ___ mg No Longer Active 11/02/2017 [facility] Saline Flush 0.9% 10 ml, Route: IVP, Drug Form: INJ, Dosing Weight 72.273, kg, PRN, PRN Line Flush, Start date: 11/02/17 1:35:00 [employer], Duration: 30 day, Stop date: 12/02/17 1:34:00 CSTNotes: (Same as: BD Posiflush) No Longer Active 11/02/2017 [facility] Insulin regular 10 unit, Route: SUB-Q, ONCE, Dosing Weight 72.273, kg, Priority: STAT, Start date: 11/02/17 1:10:00 [employer], Stop date: 11/02/17 1:10:00 [employer] Inactive 11/02/2017 [facility] Plavix 1 tablet Orally Active 75 MG Orally Once a day [facility] Allergies, Adverse Reactions, Alerts Substance Category Reaction Severity Reaction type Status Date Reported Comments Source doxycycline Assertion Drug allergy Active [facility] theophylline Assertion Drug allergy Active [facility] Benadryl Assertion Drug allergy Active [facility] Calcium Assertion Drug allergy Active [facility] Immunizations Immunization Date Given Site Status Last Updated Comments Source pneumococcal 13-valent vaccine 11/02/2017 Right Deltoid completed [facility] influenza virus vaccine, inactivated 11/02/2017 Left Deltoid completed [facility] Results Order Name Results Value Reference Range Date Interpretation Comments Source CHEM PANEL Magnesium Lvl 1.7 mg/dL 1.8 - 2.4 11/02/2017 [facility] CHEM PANEL eGFR 84 mL/min/1.73m2 11/02/2017 Result Comment: The eGFR is calculated using the CKD-EPI formula. In most young, healthy individuals the eGFR will be >90 mL/min/1.73m2. The eGFR declines with age. An eGFR of 60-89 may be normal in some populations, particularly the elderly, for whom the CKD-EPI formula has not been extensively validated. Use of the eGFR is not recommended in the following populations: Individuals with unstable creatinine concentrations, including patients and those with serious co-morbid conditions. Patients with extremes in muscle mass or diet. The data above are obtained from the National Kidney Disease Education Program (NKDEP) which additionally recommends that when the eGFR is used in patients with extremes of body mass index for purposes of drug dosing, the eGFR should be multiplied by the estimated BMI. [facility] CHEM PANEL Alk Phos 73 unit/L 39 - 136 11/02/2017 [facility] CHEM PANEL Bili Total 1.5 mg/dL 0.2 - 1.3 11/02/2017 [facility] CHEM PANEL A/G Ratio 1.1 0.7 - 1.6 11/02/2017 [facility] CHEM PANEL ALT 34 unit/L 0 - 65 11/02/2017 [facility] CHEM PANEL AST 19 unit/L 0 - 37 11/02/2017 [facility] CHEM PANEL B/C Ratio 34 6 - 25 11/02/2017 [facility] CHEM PANEL Globulin 3.1 g/dL 2.7 - 4.2 11/02/2017 [facility] CHEM PANEL AGAP 13.8 meq/L 10.0 - 20.0 11/02/2017 [facility] CHEM PANEL Calcium Lvl 9.3 mg/dL 8.5 - 10.5 11/02/2017 [facility] CHEM PANEL CO2 24 meq/L 24 - 32 11/02/2017 [facility] CHEM PANEL Total Protein 6.6 g/dL 6.4 - 8.4 11/02/2017 [facility] CHEM PANEL Albumin Lvl 3.5 g/dL 3.5 - 5.0 11/02/2017 [facility] CHEM PANEL Creatinine Lvl 0.89 mg/dL 0.50 - 1.40 11/02/2017 [facility] CHEM PANEL BUN 30 mg/dL 7 - 22 11/02/2017 [facility] CHEM PANEL Potassium Lvl 3.8 meq/L 3.5 - 5.1 11/02/2017 [facility] CHEM PANEL Sodium Lvl 138 meq/L 135 - 145 11/02/2017 [facility] CHEM PANEL Chloride Lvl 104 meq/L 95 - 109 11/02/2017 [facility] CHEM PANEL Glucose Lvl 141 mg/dL 70 - 99 11/02/2017 [facility] HEMATOLOGY Monocytes # 1.2 K/CMM 0.0 - 0.8 11/02/2017 [facility] HEMATOLOGY Basophils # 0.1 K/CMM 0.0 - 0.2 11/02/2017 [facility] Eosinophils # 0.4 K/CMM 0.0 - 0.5 11/02/2017 [facility] Eosinophils 3.5 % 0.0 - 4.0 11/02/2017 [facility] Lymphocytes 18.6 % 20.0 - 40.0 11/02/2017 [facility] Monocytes 10.6 % 2.0 - 12.0 11/02/2017 [facility] Basophils 0.7 % 0.0 - 1.0 11/02/2017 [facility] Segs 66.6 % 45.0 - 75.0 11/02/2017 [facility] Segs-Bands # 7.4 K/CMM 1.5 - 8.1 11/02/2017 [facility] Lymphocytes # 2.1 K/CMM 1.0 - 5.5 11/02/2017 [facility] RDW 14.1 % 11.5 - 14.5 11/02/2017 [facility] MCHC 33.6 g/dL 32.0 - 36.0 11/02/2017 [facility] MCH 29.3 pg 27.0 - 31.0 11/02/2017 [facility] MPV 8.5 fL 7.4 - 10.4 11/02/2017 [facility] Platelet 172 K/CMM 133 - 450 11/02/2017 [facility] MCV 86.9 fL 80.0 - 94.0 11/02/2017 [facility] Hct 41.7 % 42.0 - 54.0 11/02/2017 [facility] Hgb 14.0 g/dL 14.0 - 18.0 11/02/2017 [facility] WBC 11.2 K/CMM 3.7 - 10.4 11/02/2017 [facility] RBC 4.80 M/CMM 4.70 - 6.10 11/02/2017 [facility] Cardiac SPECT multi studies [place] Cardiac SPECT multi studies [place] [facility] This is an Lexiscan Cardiolite myocardial perfusion study. Lexiscan was injected per protocol. Cardiolite was injected during peak stress as well as during rest. The myocardial perfusion was obtained using standard procedure. There is a Large perfusion defect in the mid to distal anterior wall apical wall and mid to distal inferior wall wall. There was 0% reversible defect and 45% fixed defect. Ejection fraction was 19 % with mid to distal anterior wall mid to distal septal wall mid to distal inferior wall and apical akinesis. IMPRESSION: Abnormal adenosine myocardial perfusion study. There is perfusion defect in the three-vessel territory. Consistent with ischemic cardiomyopathy 11/02/2017 - - Read by: Mary Francis MD Dictated Date/time: 11/02/17 18:06 Electronically Signed by: Mary Francis MD 11/02/17 18:08 FINAL REPORT [facility] URINE AND STOOL UA Sq Epi None Seen 11/02/2017 [facility] URINE AND STOOL UA Urobilinogen <=1.0 mg/dL 0.1 - 1.0 11/02/2017 [facility] URINE AND STOOL UA Color Ltyellow 11/02/2017 [facility] URINE AND STOOL UA Nitrite Negative (11/02/17 1:16 AM) Negative 11/02/2017 [facility] URINE AND STOOL UA Blood Negative (11/02/17 1:16 AM) Negative 11/02/2017 [facility] URINE AND STOOL UA Leuk Est Negative (11/02/17 1:16 AM) Negative 11/02/2017 [facility] URINE AND STOOL UA Turbidity Clear (11/02/17 1:16 AM) Clear 11/02/2017 [facility] URINE AND STOOL UA Protein Negative mg/dL Negative mg/dL 11/02/2017 [facility] URINE AND STOOL UA pH 5.0 5.0 - 8.0 11/02/2017 [facility] URINE AND STOOL UA Spec Grav 1.026 <=1.030 11/02/2017 [facility] URINE AND STOOL UA Bili Negative *NA* (11/02/17 1:16 AM) Negative 11/02/2017 [facility] URINE AND STOOL UA Ketones Negative mg/dL Negative mg/dL 11/02/2017 [facility] URINE AND STOOL UA Glucose 500 mg/dL Negative mg/dL 11/02/2017 [facility] CHEM PANEL Ketone Quantitative 0.13 mmol/L <=0.27 mmol/L 11/02/2017 [facility] CARDIAC ENZYMES CK MB Index 2.3 0.0 - 2.5 11/02/2017 [facility] CARDIAC ENZYMES BNP 164 pg/mL <=100 pg/mL 11/02/2017 [facility] CARDIAC ENZYMES Troponin-I 0.07 ng/mL 0.00 - 0.40 11/02/2017 [facility] CARDIAC ENZYMES Total CK 110 unit/L 12 - 191 11/02/2017 [facility] CARDIAC ENZYMES CK MB 2.5 ng/mL 0.5 - 3.6 11/02/2017 [facility] CHEM PANEL Phosphorus 3.4 mg/dL 2.5 - 4.5 11/02/2017 [facility] CHEM PANEL Magnesium Lvl 1.8 mg/dL 1.8 - 2.4 11/02/2017 [facility] CHEM PANEL eGFR 47 mL/min/1.73m2 11/02/2017 Result Comment: The eGFR is calculated using the CKD-EPI formula. In most young, healthy individuals the eGFR will be >90 mL/min/1.73m2. The eGFR declines with age. An eGFR of 60-89 may be normal in some populations, particularly the elderly, for whom the CKD-EPI formula has not been extensively validated. Use of the eGFR is not recommended in the following populations: Individuals with unstable creatinine concentrations, including patients and those with serious co-morbid conditions. Patients with extremes in muscle mass or diet. The data above are obtained from the National Kidney Disease Education Program (NKDEP) which additionally recommends that when the eGFR is used in patients with extremes of body mass index for purposes of drug dosing, the eGFR should be multiplied by the estimated BMI. [facility] CHEM PANEL Alk Phos 74 unit/L 39 - 136 11/02/2017 [facility] CHEM PANEL Bili Total 1.7 mg/dL 0.2 - 1.3 11/02/2017 [facility] CHEM PANEL AST 17 unit/L 0 - 37 11/02/2017 [facility] CHEM PANEL ALT 38 unit/L 0 - 65 11/02/2017 [facility] CHEM PANEL Globulin 3.2 g/dL 2.7 - 4.2 11/02/2017 [facility] CHEM PANEL Albumin Lvl 3.6 g/dL 3.5 - 5.0 11/02/2017 [facility] CHEM PANEL A/G Ratio 1.1 0.7 - 1.6 11/02/2017 [facility] CHEM PANEL B/C Ratio 22 6 - 25 11/02/2017 [facility] CHEM PANEL Calcium Lvl 9.1 mg/dL 8.5 - 10.5 11/02/2017 [facility] CHEM PANEL Total Protein 6.8 g/dL 6.4 - 8.4 11/02/2017 [facility] CHEM PANEL Potassium Lvl 4.3 meq/L 3.5 - 5.1 11/02/2017 [facility] CHEM PANEL Sodium Lvl 133 meq/L 135 - 145 11/02/2017 [facility] CHEM PANEL Glucose Lvl 559 mg/dL 70 - 99 11/02/2017 Result Comment: Critical Result(s) called to Cosme Enriquez at 11/02/2017 00:35 by BE. Read back OK. [facility] CHEM PANEL Chloride Lvl 98 meq/L 95 - 109 11/02/2017 [facility] CHEM PANEL AGAP 14.3 meq/L 10.0 - 20.0 11/02/2017 [facility] CHEM PANEL CO2 25 meq/L 24 - 32 11/02/2017 [facility] CHEM PANEL BUN 32 mg/dL 7 - 22 11/02/2017 [facility] CHEM PANEL Creatinine Lvl 1.45 mg/dL 0.50 - 1.40 11/02/2017 [facility] HEMATOLOGY Monocytes # 0.9 K/CMM 0.0 - 0.8 11/02/2017 [facility] HEMATOLOGY Eosinophils # 0.2 K/CMM 0.0 - 0.5 11/02/2017 [facility] HEMATOLOGY Lymphocytes # 1.5 K/CMM 1.0 - 5.5 11/02/2017 [facility] HEMATOLOGY Segs-Bands # 8.0 K/CMM 1.5 - 8.1 11/02/2017 [facility] HEMATOLOGY Monocytes 8.6 % 2.0 - 12.0 11/02/2017 [facility] HEMATOLOGY Basophils 0.5 % 0.0 - 1.0 11/02/2017 [facility] HEMATOLOGY Eosinophils 2.1 % 0.0 - 4.0 11/02/2017 [facility] HEMATOLOGY Segs 74.6 % 45.0 - 75.0 11/02/2017 [facility] Lymphocytes 14.2 % 20.0 - 40.0 11/02/2017 [facility] HEMATOLOGY PTT 28.9 s 22.9 - 35.8 11/02/2017 [facility] HEMATOLOGY INR 1.11 0.85 - 1.17 11/02/2017 [facility] HEMATOLOGY PT 14.3 s 12.0 - 14.7 11/02/2017 [facility] MPV 8.6 fL 7.4 - 10.4 11/02/2017 [facility] RDW 14.1 % 11.5 - 14.5 11/02/2017 [facility] MCHC 33.8 g/dL 32.0 - 36.0 11/02/2017 [facility] HEMATOLOGY Platelet 185 K/CMM 133 - 450 11/02/2017 [facility] HEMATOLOGY MCV 87.7 fL 80.0 - 94.0 11/02/2017 [facility] HEMATOLOGY Hct 42.5 % 42.0 - 54.0 11/02/2017 [facility] HEMATOLOGY MCH 29.6 pg 27.0 - 31.0 11/02/2017 [facility] HEMATOLOGY Hgb 14.3 g/dL 14.0 - 18.0 11/02/2017 [facility] HEMATOLOGY RBC 4.85 M/CMM 4.70 - 6.10 11/02/2017 [facility] HEMATOLOGY WBC 10.8 K/CMM 3.7 - 10.4 11/02/2017 [facility] Chest 1view DX Chest 1view DX Study: Frontal chest x-ray History: Short of breath Comments: The trachea is midline. The cardiomediastinal silhouette is top normal in size. Left chest wall pacemaker and sternotomy wires in place. No pneumonia. Emphysematous changes in the lungs No pleural effusions or pneumothorax. Impression: No acute cardiopulmonary disease. 11/01/2017 - - Read by: Kasia Kong MD Dictated Date/time: 11/01/17 23:23 Electronically Signed by: Kasia Kong MD 11/01/17 23:24 FINAL REPORT [facility] Vital Signs Vital Sign Value Date Comments Source Systolic (mm Hg) 119 11/03/2017 [facility] Diastolic (mm Hg) 76 11/03/2017 [facility] Respitory Rate 18 11/03/2017 [facility] Heart Rate 75 11/03/2017 [facility] Temperature Oral (F) 98.5 F 11/03/2017 [facility] Temperature Oral (F) 97.9 F 11/03/2017 [facility] Heart Rate 76 11/03/2017 [facility] Respitory Rate 18 11/03/2017 [facility] Systolic (mm Hg) 115 11/03/2017 [facility] Diastolic (mm Hg) 76 11/03/2017 [facility] Systolic (mm Hg) 111 11/03/2017 [facility] Diastolic (mm Hg) 68 11/03/2017 [facility] Heart Rate 80 11/03/2017 [facility] Respitory Rate 16 11/03/2017 [facility] Temperature Oral (F) 97.4 F 11/02/2017 [facility] Height 170.18 cm 11/02/2017 [facility] Weight 73.955 11/02/2017 [facility] BMI Calculated 25.54 11/02/2017 [facility] Height 170.18 cm 11/02/2017 [facility] BMI Calculated 24.96 11/02/2017 [facility] Weight 72.273 11/02/2017 [facility] Encounters Location Location Details Encounter Type Encounter Number Reason For Visit Attending Provider ADM Date DC Date Status Source [facility] Observation [id number] Katia Monique 11/02/2017 11/03/2017 [facility] Procedures Procedure Code Date Perfomer Comments Source Angioplasty [id number] [facility] Bilateral removal of testes [id number] [facility] CABG x 2 - Coronary artery bypass grafts x 2 [id number] [facility] Colonoscopy [id number] [facility] Knee joint operation [id number] [facility] Replacement of cardiac defibrillator using fluoroscopic guidance [id number] [facility] Rotator cuff repair [id number] [facility] Thyroidectomy [id number] [facility] Tonsillectomy with adenoidectomy [id number] [facility]
--- OUTSIDE RECORDS SUMMARY | 2018-12-07 05:18 | XMS REPORT ---
Author Author [facility] Address Unknown Phone Unavailable Care Team Providers Care Electrolysist Name Role Phone Hellen ABDULLAHI Unavailable Unavailable Laurel BLACK Unavailable Unavailable Sharon BALDERAS Unavailable Unavailable ZAMBRANOYUDY Hatch Unavailable Unavailable Problems This patient has no known problems. Allergies, Adverse Reactions, Alerts This patient has no known allergies or adverse reactions. Medications This patient has no known medications. Results Test Description Test Time Test Comments Text Results Atomic Results Result Comments CHEST 2 VIEWS 2018-05-17 20:20:00 [place] [address] Patient Name: ELA GUTIERREZ MR #: [id number] : 1945 Age/Sex: 72/M Req #: [id number] Adm Physician: Ordered by: OMEGA ABDULLAHI MD Report #: [id number] Location: ER Room/Bed: Procedure: [id number] DX/CHEST 2 VIEWS Exam Date: 05/17/18 Exam Time: 2009 REPORT STATUS: Signed EXAMINATION: CHEST 2 VIEWS INDICATION: S CHEST PAIN X1 HR COMPARISON: Chest x-ray 03/23/2018. 01/17/2017. FINDINGS: PA and lateral views TUBES and LINES: Left-sided ICD with 2 leads. Median sternotomy wires and mediastinal clips are present. Fracture of the first and second wires are unchanged. LUNGS: Lungs are well inflated. There are bibasilar atelectasis. There is perihilar interstitial opacities, consistent with interstitial edema. PLEURA: No pleural effusion or pneumothorax. HEART AND MEDIASTINUM: Cardiac size is mildly enlarged. There are atherosclerotic calcifications within the aorta. BONES AND SOFT TISSUES: No acute osseous lesion. Moderate degenerative changes in bilateral glenohumeral joints. Soft tissues are unremarkable. UPPER ABDOMEN: No free air under the diaphragm. IMPRESSION: Mild cardiomegaly with interstitial edema. Signed by: Dr. Tika Anaya M.D. on 05/17/2018 8:28 PM Dictated By: TIKA ANAYA MD 27 Transcribed By: RADHA on 05/17/182027 COPY TO: OMEGA ABDULLAHI MD CHEST SINGLE (PORTABLE) [place] [address] Patient Name: ELA GUTIERREZ MR #: [id number] : 1945 Age/Sex: 72/M Req #: [id number] Adm Physician: Ordered by: ANAY BLACK MD Report #: [id number] Location: ER Room/Bed: Procedure: [id number] DX/CHEST SINGLE (PORTABLE) Exam Date: 03/23/18 Exam Time: 2019 REPORT STATUS: Signed EXAMINATION: CHEST SINGLE (PORTABLE) INDICATION: Shortness of breath COMPARISON: None FINDINGS: TUBES and LINES: Sternal wires. The most superior sternal wire is disrupted. Left chest cardiac device with 2 leads over the heart LUNGS: Lungs are well inflated. There is no evidence of consolidative pneumonia PLEURA: There may be a small left pleural effusion. HEART AND MEDIASTINUM: Cardiomegaly with pulmonary vascular congestion. BONES AND SOFT TISSUES: No acute osseous lesion. Soft tissues are unremarkable. UPPER ABDOMEN: No free air under the diaphragm. IMPRESSION: Cardiomegaly with pulmonary vascular congestion. There may be a small left pleural effusion. Signed by: Dr. Faustino Beatty M.D. on 03/23/2018 8:30 PM Dictated By: FAUSTINO BEATTY MD, MD 29 Transcribed By: RADHA on 03/23/182029 COPY TO: ANAY BLACK MD CT CERVICAL SPINE WO [place] [address] Patient Name: ELA GUTIERREZ MR #: [id number] : 1945 Age/Sex: 72/M Req #: [id number] Adm Physician: Ordered by: ALAN BALDERAS MD Report #: [id number] Location: CT Room/Bed: Procedure: [id number] CT/CT CERVICAL SPINE WO Exam Date: 12/23/17 [...] on 12/24/17618 COPY TO: ALAN BALDERAS MD [place] [address] Patient Name: ELA GUTIERREZ MR #: [id number] : 1945 Age/Sex: 71/M Req #: [id number] Adm Physician: Ordered by: YUDY ZAMBRANO MD Report #: [id number] Location: [facility] Room/Bed: Procedure: [id number] DX/SHOULDER RIGHT COMPLETE Exam Date: 09/16/17 Exam Time: 1035 REPORT STATUS: Signed PROCEDURE: X-RAY RIGHT SHOULDER, COMPLETE COMPARISON: None. INDICATIONS: RIGHT SHOULDER PAIN FINDINGS: There are no fractures, dislocations, lytic or blastic lesions. The bones are well- mineralized. The soft-tissues are unremarkable. CONCLUSION: No acute radiographic abnormality. Dictated by: Ela Azar M.D. on 09/16/2017 at 11:39 Electronically approved by: Ela Azar M.D. on 09/16/2017 at 11:39 Dictated By: ELA AZAR MD 1139 Transcribed By: TRI on 09/16/17 1139 COPY TO: YUDY ZAMBRANO MD
--- OUTSIDE RECORDS SUMMARY | 2018-12-07 05:18 | XMS REPORT | Summary of Care ---
Author Author [facility] Organization [facility] Address Unknown Phone Unavailable Encounter BRANDON Crhistine(JOHN) [id number] Date(s): 11/01/17 - 11/03/17 [facility] [address] [place] [address]- [phone] Final: Chest pain, unspecified Discharge Disposition: Home or Self Care Attending Physician: Katia Monique MD Admitting Physician: Katia Monique MD Vital Signs 1 2 3 Most recent to oldest [Reference Range]: 170.18 cm (11/02/17 4:25 AM) 170.18 cm (11/01/17 11:42 PM) Height 98.5 DegF (11/03/17 11:46 AM) 97.9 DegF (11/03/17 8:01 AM) 97.4 DegF (11/02/17 12:05 PM) Temperature Oral [96.4-99.1 DegF] 119/76 mmHg (11/03/17 11:46 AM) 115/76 mmHg (11/03/17 8:01 AM) 111/68 mmHg (11/03/17 5:46 AM) Blood Pressure [90-140/60-90 mmHg] 18 BRMIN (11/03/17 11:46 AM) 18 BRMIN (11/03/17 8:01 AM) 16 BRMIN (11/03/17 5:46 AM) Respiratory Rate [14-20 BRMIN] 75 bpm (11/03/17 11:46 AM) 76 bpm (11/03/17 8:01 AM) 80 bpm (11/03/17 5:46 AM) Peripheral Pulse Rate [60-100 bpm] 73.955 kg (11/02/17 4:25 AM) 72.273 kg (11/01/17 11:42 PM) Weight 25.54 m2 (11/02/17 4:25 AM) 24.96 m2 (11/01/17 11:42 PM) Body Mass Index Problem List Condition Effective Dates Status Health Status Informant CHF (congestive Resolved heart failure)(Confirmed) CAD (coronary artery Resolved disease)(Confirmed) Diabetes Resolved mellitus(Confirmed) Thyroid Resolved cancer(Confirmed) Allergies, Adverse Reactions, Alerts Substance Reaction Severity Status doxycycline Active theophylline Active Benadryl Active Calcium Active Medications acetaminophen-hydrocodone 325 mg-5 mg oral tablet 2 tab, Route: PO, Drug Form: TAB, Dosing Weight 72.273, kg, Q4H, PRN Pain Score 7-10, Start date: 11/02/17 1:35:00 [employer], Duration: 30 day, Stop date: 12/02/17 1: 34:00 [employer] Notes: (Same as: [place] 325/5) Do not exceed 4gm/day of acetaminophen. Start Date: 11/02/17 Stop Date: 11/03/17 Status: Discontinued aspirin 81 mg, 1 tab, Route: PO, Drug form: ECTAB, Daily, Dosing Weight 72.273, kg, Prio rity: STAT, Start date: 11/02/17 1:36:00 [employer], Duration: 30 day, Stop date: 12/01 9:00:00 [employer] Notes: Do not crush or chew.(Same As: Ecotrin) Start Date: 11/02/17 Stop Date: 11/03/17 Status: Discontinued aspirin 81 mg tablet, enteric coated 81 mg=1 tab, PO, Daily, 0 Refill(s) Start Date: 11/03/17 Status: Ordered CeleBREX 200 mg, PO, Daily, 0 Refill(s) Start Date: 11/02/17 Status: Ordered Centrum Silver Men's 1 tab, PO, Daily, 0 Refill(s) Start Date: 11/02/17 Status: Ordered Coreg 25 mg, 2 tab, Route: PO, Drug form: TAB, BID, Dosing Weight 73.955, kg, Start da te: 11/02/17 9:00:00 [employer], Duration: 30 day, Stop date: 12/01/17 21:00:00 [employer] Notes: Give with food. (Same As: Coreg) Start Date: 11/02/17 Stop Date: 11/03/17 Status: Discontinued Coreg 25 mg, PO, BID, 0 Refill(s) Start Date: 11/02/17 Status: Ordered Dextrose 50% Syringe 12.5 gm, 25 mL, Route: IVP, Drug Form: INJ, Dosing Weight 72.273, kg, PRN, PRN B lood Glucose Results, Start date: 11/02/17 1:56:00 [employer], Duration: 30 day, Stop d ate: 12/02/17 1:55:00 [employer] Start Date: 11/02/17 Stop Date: 11/03/17 Status: Discontinued Dextrose 50% Syringe 25 gm, 50 mL, Route: IVP, Drug Form: INJ, Dosing Weight 72.273, kg, PRN, PRN Blo od Glucose Results, Start date: 11/02/17 1:56:00 [employer], Duration: 30 day, Stop lori e: 12/02/17 1:55:00 [employer] Start Date: 11/02/17 Stop Date: 11/03/17 Status: Discontinued Fish Oil 1,000 mg, 1 cap, Route: PO, Drug form: CAP, Daily, Dosing Weight 73.955, kg, Sta rt date: 11/02/17 9:00:00 [employer], Duration: 30 day, Stop date: 12/01/17 9:00:00 [employer] Notes: (Same as: MaxEPA, [place] 3 fish oil )Non-Formulary Drug Start Date: 11/02/17 Stop Date: 11/03/17 Status: Discontinued Fish Oil 1,000 mg, PO, Daily, 0 Refill(s) Start Date: 11/02/17 Status: Ordered glucagon 1 mg, Route: IM, Drug form: PDR/INJ, PRN, Dosing Weight 72.273, kg, PRN Blood Gl ucose Results, Start date: 11/02/17 1:56:00 [employer], Duration: 30 day, Stop date: 1:55:00 [employer] Start Date: 11/02/17 Stop Date: 11/03/17 Status: Discontinued Imdur 30 mg oral tablet, extended release 30 mg=1 tab, PO, QAM, # 30 tab, 0 Refill(s), Pharmacy: [facility] [id number] Start Date: 11/03/17 Status: Ordered Imdur 30 mg oral tablet, extended release 30 mg=1 tab, PO, QAM, # 30 tab, 0 Refill(s), Pharmacy: [facility] [id number] Start Date: 11/02/17 Status: Ordered influenza virus vaccine, inactivated 0.5 mL, Route: IM, Drug Form: SUSP, Daily, Start date: 11/02/17 9:00:00 [employer], Sto p date: 11/02/17 15:00:00 [employer] Notes: (Same as: Fluzone Quadrivalent, Fluarix Quadrivalent)For 3 years of age a nd older (0.5 mL IM)Shake well before use Start Date: 11/02/17 Stop Date: 11/02/17 Status: Completed insulin glargine 14 unit, 0.14 mL, Route: SUB-Q, Drug form: SOLN, ONCE, Dosing Weight 72.273, kg, Priority: NOW, Start date: 11/02/17 1:56:00 [employer], Stop date: 11/02/17 1:56:00 [employer] Notes: (Same as: Ivan)Do not hold insulin without contacting prescriberWASTE: F/P - Black; E - Municipal Trash Bin "single patient use only" Start Date: 11/02/17 Stop Date: 11/02/17 Status: Completed insulin lispro 3 unit, 0.03 mL, Route: SUB-Q, Drug form: SOLN, Bedtime, Dosing Weight 72.273, k g, PRN Blood Glucose Results, Start date: 11/02/17 1:56:00 [employer], Duration: 30 day , Stop date: 12/02/17 1:55:00 [employer] Notes: Roll in palms of hands gently; Do not shake `vigorously. (Same as: Suzie sparrow )"Single Patient Use Only "WASTE: F/P - Black; E - Municipal Trash Bin Stabl e for 28 days at room temperature.Expires in days from Date Start Date: 11/02/17 Stop Date: 11/03/17 Status: Discontinued insulin lispro 4 unit, 0.04 mL, Route: SUB-Q, Drug form: SOLN, Bedtime, Dosing Weight 72.273, k g, PRN Blood Glucose Results, Start date: 11/02/17 1:56:00 [employer], Duration: 30 day , Stop date: 12/02/17 1:55:00 [employer] Notes: Roll in palms of hands gently; Do not shake `vigorously. (Same as: Humal og )"Single Patient Use Only "WASTE: F/P - Black; E - Municipal Trash Bin Stabl e for 28 days at room temperature.Expires in days from Date Start Date: 11/02/17 Stop Date: 11/03/17 Status: Discontinued insulin lispro 1 unit, 0.01 mL, Route: SUB-Q, Drug form: SOLN, Bedtime, Dosing Weight 72.273, k g, PRN Blood Glucose Results, Start date: 11/02/17 1:56:00 [employer], Duration: 30 day , Stop date: 12/02/17 1:55:00 [employer] Notes: Roll in palms of hands gently; Do not shake `vigorously. (Same as: Humal og )"Single Patient Use Only "WASTE: F/P - Black; E - Municipal Trash Bin Stabl e for 28 days at room temperature.Expires in days from Date Start Date: 11/02/17 Stop Date: 11/03/17 Status: Discontinued insulin lispro 2 unit, 0.02 mL, Route: SUB-Q, Drug form: SOLN, Bedtime, Dosing Weight 72.273, k g, PRN Blood Glucose Results, Start date: 11/02/17 1:56:00 [employer], Duration: 30 day , Stop date: 12/02/17 1:55:00 [employer] Notes: Roll in palms of hands gently; Do not shake `vigorously. (Same as: Humal og )"Single Patient Use Only "WASTE: F/P - Black; E - Municipal Trash Bin Stabl e for 28 days at room temperature.Expires in days from Date Start Date: 11/02/17 Stop Date: 11/03/17 Status: Discontinued insulin lispro 6 unit, 0.06 mL, Route: SUB-Q, Drug form: SOLN, TID-Before Meals, Dosing Weight 72.273, kg, PRN Blood Glucose Results, Start date: 11/02/17 1:56:00 [employer], Duratio n: 30 day, Stop date: 12/02/17 1:55:00 [employer] Notes: Roll in palms of hands gently; Do not shake `vigorously. (Same as: Humal og )"Single Patient Use Only "WASTE: F/P - Black; E - Municipal Trash Bin Stabl e for 28 days at room temperature.Expires in days from Date Start Date: 11/02/17 Stop Date: 11/03/17 Status: Discontinued insulin lispro 3 unit, 0.03 mL, Route: SUB-Q, Drug form: SOLN, TID-Before Meals, Dosing Weight 72.273, kg, PRN Blood Glucose Results, Start date: 11/02/17 1:56:00 [employer], Duratio n: 30 day, Stop date: 12/02/17 1:55:00 [employer] Notes: Roll in palms of hands gently; Do not shake `vigorously. (Same as: Humal og )"Single Patient Use Only "WASTE: F/P - Black; E - Municipal Trash Bin Stabl e for 28 days at room temperature.Expires in days from Date Start Date: 11/02/17 Stop Date: 11/03/17 Status: Discontinued insulin lispro 9 unit, 0.09 mL, Route: SUB-Q, Drug form: SOLN, TID-Before Meals, Dosing Weight 72.273, kg, PRN Blood Glucose Results, Start date: 11/02/17 1:56:00 [employer], Duratio n: 30 day, Stop date: 12/02/17 1:55:00 [employer] Notes: Roll in palms of hands gently; Do not shake `vigorously. (Same as: Humal og )"Single Patient Use Only "WASTE: F/P - Black; E - Municipal Trash Bin Stabl e for 28 days at room temperature.Expires in days from Date Start Date: 11/02/17 Stop Date: 11/03/17 Status: Discontinued insulin lispro 12 unit, 0.12 mL, Route: SUB-Q, Drug form: SOLN, TID-Before Meals, Dosing Weight 72.273, kg, PRN Blood Glucose Results, Start date: 11/02/17 1:56:00 [employer], Durati on: 30 day, Stop date: 12/02/17 1:55:00 [employer] Notes: Roll in palms of hands gently; Do not shake `vigorously. (Same as: Humal og )"Single Patient Use Only "WASTE: F/P - Black; E - Municipal Trash Bin Stabl e for 28 days at room temperature.Expires in days from Date Start Date: 11/02/17 Stop Date: 11/03/17 Status: Discontinued insulin lispro 15 unit, 0.15 mL, Route: SUB-Q, Drug form: SOLN, TID-Before Meals, Dosing Weight 72.273, kg, PRN Blood Glucose Results, Start date: 11/02/17 1:56:00 [employer], Durati on: 30 day, Stop date: 12/02/17 1:55:00 [employer] Notes: Roll in palms of hands gently; Do not shake `vigorously. (Same as: Humal og )"Single Patient Use Only "WASTE: F/P - Black; E - Municipal Trash Bin Stabl e for 28 days at room temperature.Expires in days from Date Start Date: 11/02/17 Stop Date: 11/03/17 Status: Discontinued insulin lispro 15 unit, 0.15 mL, Route: SUB-Q, Drug form: SOLN, ONCE, Dosing Weight 73.955, kg, Start date: 11/02/17 21:37:00 [employer], Stop date: 11/02/17 21:37:00 [employer] Notes: Roll in palms of hands gently; Do not shake `vigorously. (Same as: Humal og )"Single Patient Use Only "WASTE: F/P - Black; E - Municipal Trash Bin Stabl e for 28 days at room temperature.Expires in days from Date Start Date: 11/02/17 Stop Date: 11/02/17 Status: Completed Insulin regular 10 unit, Route: SUB-Q, ONCE, Dosing Weight 72.273, kg, Priority: STAT, Start lori e: 11/02/17 1:10:00 [employer], Stop date: 11/02/17 1:10:00 [employer] Start Date: 11/02/17 Stop Date: 11/02/17 Status: Completed Lasix 40 mg, 1 tab, Route: PO, Drug form: TAB, Daily, Dosing Weight 73.955, kg, Start date: 11/02/17 9:00:00 [employer], Duration: 30 day, Stop date: 12/01/17 9:00:00 [employer] Notes: (Same as: Lasix) May cause GI upset. Give with food or milk. Start Date: 11/02/17 Stop Date: 11/03/17 Status: Discontinued Lasix 40 mg, PO, Daily, 0 Refill(s) Start Date: 11/02/17 Status: Ordered magnesium sulfate 1 gm, 100 mL, Route: IVPB, Drug form: INJ, ONCE, Dosing Weight 73.955, kg, Start date: 11/02/17 10:00:00 [employer], Stop date: 11/02/17 10:00:00 [employer] Notes: WASTE: F/P - Sink; E - Municipal Trash Bin Start Date: 11/02/17 Stop Date: 11/02/17 Status: Completed metFORMIN 500 mg, PO, BID, 0 Refill(s) Start Date: 11/02/17 Status: Ordered morphine Sulfate 2 mg, 1 mL, Route: IVP, Drug form: SOLN, Q4H, Dosing Weight 72.273, kg, PRN Pain Score 7-10, Start date: 11/02/17 1:35:00 [employer], Duration: 30 day, Stop date: 04/14 1:34:00 [employer] Start Date: 11/02/17 Stop Date: 11/03/17 Status: Discontinued Nitrostat 0.4 mg sublingual tablet 0.4 mg, 1 tab, Route: SL, Drug form: TAB, Q5Min, Dosing Weight 73.955, kg, PRN C hest Pain, Start date: 11/02/17 8:22:00 [employer], Duration: 30 day, Stop date: 8:21:00 [employer] Notes: (Same as:Nitroquick, Nitrostat)"Do Not Crush" Sublingual tablet Start Date: 11/02/17 Stop Date: 11/03/17 Status: Discontinued Nitrostat 0.4 mg sublingual tablet See Instructions, PRN Chest Pain, 1 tab SL prn per patient, 0 Refill(s) Start Date: 11/02/17 Status: Ordered [place] 10/325 oral tablet See Instructions, 1 tab PO prn per patient, 0 Refill(s) Start Date: 11/02/17 Status: Ordered ondansetron 4 mg, 2 mL, Route: IVP, Drug form: INJ, Q6H, Dosing Weight 72.273, kg, PRN Nause a & Vomiting, Start date: 11/02/17 1:35:00 [employer], Duration: 30 day, Stop date: 12/02/17 1:34:00 [employer] Notes: (Same as: Yarely) MEDICATION WASTE Product Size: 4 mgProduct Was sidney: ___ mg Start Date: 11/02/17 Stop Date: 11/03/17 Status: Discontinued Plavix 75 mg, 1 tab, Route: PO, Drug form: TAB, Daily, Dosing Weight 73.955, kg, Start date: 11/02/17 9:00:00 [employer], Duration: 30 day, Stop date: 12/01/17 9:00:00 [employer] Notes: (Same As: Plavix) Start Date: 11/02/17 Stop Date: 11/03/17 Status: Discontinued Plavix 75 mg, PO, Daily, 0 Refill(s) Start Date: 11/02/17 Status: Ordered pneumococcal 13-valent vaccine 0.5 mL, Route: IM, Drug Form: INJ, Daily, Start date: 11/02/17 9:00:00 [employer], Stop date: 11/02/17 15:00:00 [employer] Notes: Shake well prior to use (Same as: Prevnar 13) Start Date: 11/02/17 Stop Date: 11/02/17 Status: Completed ramipril 1.25 mg, 1 cap, Route: PO, Drug form: CAP, Daily, Dosing Weight 73.955, kg, Star t date: 11/04/17 9:00:00 [employer], Duration: 30 day, Stop date: 12/03/17 9:00:00 [employer] Notes: (Same as:Altace) Start Date: 11/04/17 Stop Date: 11/03/17 Status: Canceled ramipril 1.25 mg oral capsule 1.25 mg, PO, Daily, # 30 cap, 0 Refill(s), Pharmacy: [facility] [id number] Start Date: 11/03/17 Status: Ordered Requip 5 mg, 2.5 tab, Route: PO, Drug form: TAB, [id number], Dosing Weight 73.955, kg, Sta rt date: 11/02/17 17:00:00 [employer], Duration: 30 day, Stop date: 12/02/17 9:00:00 CS T Notes: (Same as: Requip) Start Date: 11/02/17 Stop Date: 11/03/17 Status: Discontinued Requip 5 mg oral tablet 5 mg=1 tab, PO, BID, # 270 tab, 0 Refill(s) Start Date: 11/02/17 Status: Ordered Saline Flush 0.9% 10 ml, Route: IVP, Drug Form: INJ, Dosing Weight 72.273, kg, PRN, PRN Line Flush , Start date: 11/02/17 1:35:00 [employer], Duration: 30 day, Stop date: 12/02/17 1:34:0 0 [employer] Notes: (Same as: BD Posiflush) Start Date: 11/02/17 Stop Date: 11/03/17 Status: Discontinued Sodium Chloride 0.9% IV 1,000 mL 1,000 mL, Rate: 50 ml/hr, Infuse over: 20 hr, Route: IV, Dosing Weight 72.273 kg , Total Volume: 1,000, Start date: 11/02/17 1:35:00 [employer], Duration: 30 day, Stop date: 12/02/17 1:34:00 [employer], 1.86, m2 Start Date: 11/02/17 Stop Date: 11/03/17 Status: Discontinued spironolactone 50 mg, 1 tab, Route: PO, Drug form: TAB, Daily, Dosing Weight 73.955, kg, Start date: 11/02/17 9:00:00 [employer], Duration: 30 day, Stop date: 12/01/17 9:00:00 [employer] Notes: (Same As: Aldactone) Start Date: 11/02/17 Stop Date: 11/03/17 Status: Discontinued spironolactone 25 mg=2 tab, PO, Daily, # 60 tab, 0 Refill(s) Start Date: 11/02/17 Status: Ordered testosterone See Instructions, 2,000 mg IM every two weeks, 0 Refill(s) Start Date: 11/02/17 Status: Ordered Results ELECTROLYTES Most recent to 1 2 oldest [Reference Range]: Sodium Lvl [135-145 138 mEq/L 133 mEq/L mEq/L] (11/02/17 6:03 AM) *LOW* (11/01/17 11:49 PM) Potassium Lvl 3.8 mEq/L 4.3 mEq/L [3.5-5.1 mEq/L] (11/02/17 6:03 AM) (11/01/17 11:49 PM) Chloride Lvl [95-109 104 mEq/L 98 mEq/L mEq/L] (11/02/17 6:03 AM) (11/01/17 11:49 PM) CO2 [24-32 mEq/L] 24 mEq/L 25 mEq/L (11/02/17 6:03 AM) (11/01/17 11:49 PM) AGAP [10.0-20.0 13.8 mEq/L 14.3 mEq/L mEq/L] (11/02/17 6:03 AM) (11/01/17 11:49 PM) CHEM PANEL Most recent to 1 2 oldest [Reference Range]: Creatinine Lvl 0.89 mg/dL 1.45 mg/dL [0.50-1.40 mg/dL] (11/02/17 6:03 AM) *HI* (11/01/17 11:49 PM) eGFR 84 mL/min/1.73m2 1 47 mL/min/1.73m2 2 *NA* *NA* (11/02/17 6:03 AM) (11/01/17 11:49 PM) BUN [7-22 mg/dL] 30 mg/dL 32 mg/dL *HI* *HI* (11/02/17 6:03 AM) (11/01/17 11:49 PM) B/C Ratio [6-25] 34 22 *HI* (11/01/17 11:49 PM) (11/02/17 6:03 AM) Glucose Lvl [70-99 141 mg/dL 559 mg/dL 3 mg/dL] *HI* *CRIT* (11/02/17 6:03 AM) (11/01/17 11:49 PM) Total Protein 6.6 g/dL 6.8 g/dL [6.4-8.4 g/dL] (11/02/17 6:03 AM) (11/01/17 11:49 PM) Albumin Lvl [3.5-5.0 3.5 g/dL 3.6 g/dL g/dL] (11/02/17 6:03 AM) (11/01/17 11:49 PM) Globulin [2.7-4.2 3.1 g/dL 3.2 g/dL g/dL] (11/02/17 6:03 AM) (11/01/17 11:49 PM) A/G Ratio [0.7-1.6] 1.1 1.1 (11/02/17 6:03 AM) (11/01/17 11:49 PM) Calcium Lvl 9.3 mg/dL 9.1 mg/dL [8.5-10.5 mg/dL] (11/02/17 6:03 AM) (11/01/17 11:49 PM) Phosphorus [2.5-4.5 3.4 mg/dL mg/dL] (11/01/17 11:49 PM) Magnesium Lvl 1.7 mg/dL 1.8 mg/dL [1.8-2.4 mg/dL] *LOW* (11/01/17 11:49 PM) (11/02/17 6:03 AM) ALT [0-65 unit/L] 34 unit/L 38 unit/L (11/02/17 6:03 AM) (11/01/17 11:49 PM) AST [0-37 unit/L] 19 unit/L 17 unit/L (11/02/17 6:03 AM) (11/01/17 11:49 PM) Alk Phos [39-136 73 unit/L 74 unit/L unit/L] (11/02/17 6:03 AM) (11/01/17 11:49 PM) Bili Total [0.2-1.3 1.5 mg/dL 1.7 mg/dL mg/dL] *HI* *HI* (11/02/17 6:03 AM) (11/01/17 11:49 PM) Ketone Quantitative 0.13 mmol/L [<=0.27 mmol/L] (11/02/17 1:04 AM) 1Result Comment: The eGFR is calculated using the [...] from the National Kidney Disease Education Program ( NKDEP) which additionally recommends that when the eGFR is used in patients with extremes of body mass index for purposes of drug dosing, the eGFR should be mul tiplied by the estimated BMI. 2Result Comment: The eGFR is calculated using the [...] from the National Kidney Disease Education Program ( NKDEP) which additionally recommends that when the eGFR is used in patients with extremes of body mass index for purposes of drug dosing, the eGFR should be mul tiplied by the estimated BMI. 3Result Comment: Critical Result(s) called to Cosme Enriquez at 11/02/2017 00:35 by BE. Read back OK. CARDIAC ENZYMES Most recent to 1 2 oldest [Reference Range]: Total CK [12-191 110 unit/L unit/L] (11/01/17 11:49 PM) CK MB [0.5-3.6 2.5 ng/mL ng/mL] (11/01/17 11:49 PM) CK MB Index 2.3 [0.0-2.5] (11/01/17 11:49 PM) Troponin-I 0.07 ng/mL [0.00-0.40 ng/mL] (11/01/17 11:49 PM) BNP [<=100 pg/mL] 164 pg/mL *HI* (11/01/17 11:49 PM) URINE AND STOOL Most recent to 1 2 oldest [Reference Range]: UA Turbidity [Clear] Clear (11/02/17 1:16 AM) UA Color Ltyellow *NA* (11/02/17 1:16 AM) UA pH [5.0-8.0] 5.0 (11/02/17 1:16 AM) UA Spec Grav 1.026 [<=1.030] (11/02/17 1:16 AM) UA Glucose [Negative 500 mg/dL mg/dL] *ABN* (11/02/17 1:16 AM) UA Blood [Negative] Negative (11/02/17 1:16 AM) UA Ketones [Negative Negative mg/dL mg/dL] *NA* (11/02/17 1:16 AM) UA Protein [Negative Negative mg/dL mg/dL] (11/02/17 1:16 AM) UA Urobilinogen <=1.0 mg/dL [0.1-1.0 mg/dL] *NA* (11/02/17 1:16 AM) UA Bili [Negative] Negative *NA* (11/02/17 1:16 AM) UA Leuk Est Negative [Negative] (11/02/17 1:16 AM) UA Nitrite Negative [Negative] (11/02/17 1:16 AM) UA Sq Epi None Seen *NA* (11/02/17 1:16 AM) HEMATOLOGY Most recent to 1 2 oldest [Reference Range]: WBC [3.7-10.4 K/CMM] 11.2 K/CMM 10.8 K/CMM *HI* *HI* (11/02/17 6:03 AM) (11/01/17 11:49 PM) RBC [4.70-6.10 4.80 M/CMM 4.85 M/CMM M/CMM] (11/02/17 6:03 AM) (11/01/17 11:49 PM) Hgb [14.0-18.0 g/dL] 14.0 g/dL 14.3 g/dL (11/02/17 6:03 AM) (11/01/17 11:49 PM) Hct [42.0-54.0 %] 41.7 % 42.5 % *LOW* (11/01/17 11:49 PM) (11/02/17 6:03 AM) MCV [80.0-94.0 fL] 86.9 fL 87.7 fL (11/02/17 6:03 AM) (11/01/17 11:49 PM) MCH [27.0-31.0 pg] 29.3 pg 29.6 pg (11/02/17:03 AM) (11/01/17 11:49 PM) MCHC [32.0-36.0 33.6 g/dL 33.8 g/dL g/dL] (11/02/17 6:03 AM) (11/01/17 11:49 PM) RDW [11.5-14.5 %] 14.1 % 14.1 % (11/02/17 6:03 AM) (11/01/17 11:49 PM) Platelet [133-450 172 K/CMM 185 K/CMM K/CMM] (11/02/17 6:03 AM) (11/01/17 11:49 PM) MPV [7.4-10.4 fL] 8.5 fL 8.6 fL (11/02/17 6:03 AM) (11/01/17 11:49 PM) Segs [45.0-75.0 %] 66.6 % 74.6 % (11/02/17 6:03 AM) (11/01/17 11:49 PM) Lymphocytes 18.6 % 14.2 % [20.0-40.0 %] *LOW* *LOW* (11/02/17 6:03 AM) (11/01/17 11:49 PM) Monocytes [2.0-12.0 10.6 % 8.6 % %] (11/02/17 6:03 AM) (11/01/17 11:49 PM) Eosinophils [0.0-4.0 3.5 % 2.1 % %] (11/02/17 6:03 AM) (11/01/17 11:49 PM) Basophils [0.0-1.0 0.7 % 0.5 % %] (11/02/17 6:03 AM) (11/01/17 11:49 PM) Segs-Bands # 7.4 K/CMM 8.0 K/CMM [1.5-8.1 K/CMM] (11/02/17 6:03 AM) (11/01/17 11:49 PM) Lymphocytes # 2.1 K/CMM 1.5 K/CMM [1.0-5.5 K/CMM] (11/02/17 6:03 AM) (11/01/17 11:49 PM) Monocytes # [0.0-0.8 1.2 K/CMM 0.9 K/CMM K/CMM] *HI* *HI* (11/02/17 6:03 AM) (11/01/17 11:49 PM) Eosinophils # 0.4 K/CMM 0.2 K/CMM [0.0-0.5 K/CMM] (11/02/17 6:03 AM) (11/01/17 11:49 PM) Basophils # [0.0-0.2 0.1 K/CMM K/CMM] (11/02/17 6:03 AM) PT [12.0-14.7 14.3 seconds seconds] (11/01/17 11:49 PM) INR [0.85-1.17] 1.11 (11/01/17 11:49 PM) PTT [22.9-35.8 28.9 seconds seconds] (11/01/17 11:49 PM) Immunizations Given and Recorded Vaccine Date Status Refusal Reason pneumococcal 13-valent vaccine 11/02/17 Given influenza virus vaccine, inactivated 11/02/17 Given Procedures Procedure Date Related Diagnosis Body Site Angioplasty Bilateral removal of testes CABG x 2 - Coronary artery bypass grafts x 2 Colonoscopy Knee joint operation Replacement of cardiac defibrillator using fluoroscopic guidance Rotator cuff repair Thyroidectomy Tonsillectomy with adenoidectomy Social History Social History Type Response Substance Abuse Use: None. Alcohol Never Smoking Status Never smoker; Exposure to Tobacco Smoke None; Cigarette Smoking Last 365 Days No; Reg Smoking Cessation Counseling No Assessment and Plan Extracted from: Title: Clinical Document Author: Mary Francis MD Date: 11/03/17 Progress Note [facility] Mary Francis M.D. [facility] SUBJECTIVE stable No CP OBJECTIVE Vitals and Temp: VitalsTmp(F)[id number] 11/03 11:[id number]/[id number]--- 11/03 08:[id number]--- 11/03 05:4697.952296/[id number]--- 11/03 00:1297.762212/242526--- 11/02 21:20 1496--- 24 Hr Tmax: 98.5F (36.94c) at 11/03 11:46Vital Signs are the last 5 in the past 48 hours. Labs Most Recent Results Previous Results Previous Results Previous Results WBC H 11.2 (NOV 02) H 10.8 (NOV 01) -- -- Hgb 14.0 (NOV 02) 14.3 (NOV 01) -- -- Hct L 41.7 (NOV 02) 42.5 (NOV 01) -- -- Plt 172 (NOV 02) 185 (NOV 01) -- -- Na 138 (NOV 02) L 133 (NOV 01) -- -- K 3.8 (NOV 02) 4.3 (NOV 01) -- -- CO2 24 (NOV 02) 25 (NOV 01) -- -- Cl 104 (NOV 02) 98 (NOV 01) -- -- Cr 0.89 (NOV 02) H 1.45 (NOV 01) -- -- BUN H 30 (NOV 02) H 32 (NOV 01) -- -- Glucose Random H 141 (NOV 02) C 559 (NOV 01) -- -- Mg L 1.7 (NOV 02) 1.8 (NOV 01) -- -- Phos 3.4 (NOV 01) -- -- -- Ca 9.3 (NOV 02) 9.1 (NOV 01) -- -- PT 14.3 (NOV 01) -- -- -- INR 1.11 (NOV 01) -- -- -- PTT 28.9 (NOV 01) -- -- -- Troponin 0.07 (NOV 01) -- -- -- CK MB 2.5 (NOV 01) -- -- -- Total CK 110 (NOV 01) RTF_CENTER, -- RTF_CENTER, -- RTF_CENTER, -- Medications Scheduled Meds (8):aspirin, carvedilol (Coreg), clopidogrel (Plavix), furosemide (Lasix), omega-3 polyunsaturated fatty acids (Fish Oil), rOPINIRole (Requip), ramipril, spironolactone Unscheduled Meds: None PRN Meds (17):Dextrose 50% in Water IV (Dextrose 50% Syringe), Dextrose 50% in Water IV (Dextrose 50% Syringe), acetaminophen-hydrocodone (acetaminophen- hydrocodone 325 mg-5 mg oral tablet), glucagon, insulin lispro, insulin lispro, insulin lispro, insulin lispro, insulin lispro, insulin lispro, insulin lispro, insulin lispro, insulin lispro, morphine Sulfate, nitroglycerin (Nitrostat 0.4 mg sublingual tablet), ondansetron, sodium chloride (Saline Flush 0.9%) One Time Meds (3):(not done) insulin glargine, (Completed) insulin lispro, (Completed) magnesium sulfate Continuous Infusions (1):Sodium Chloride 0.9% IV 1,000 mL EXAM: Head: normocephalic and atraumatic Neck: no carotid bruit; no JVD CV: regular; -S3; no significant murmurs Lungs: Clear; no wheezing; good air entry Abd: soft; + bowel sounds Ext: No edema Neuro: No focal neuro deficit Lexiscan Large scar ; No ischemia ASSESSMENT: Ischemia cardiomyopathy ; angina now js r Ch Sys CHF PLAN: DC home Ramipril 1.25 mg daily Imdur 60 mg called in f/u Dr Glass 1-2 wk d/w nurse
--- OUTSIDE RECORDS SUMMARY | 2018-12-07 05:18 | XMS REPORT ---
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 Active Problem Angina at rest I20.8 Active Problem 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 Active Problem AICD (automatic cardioverter/defibrillator) present Z95.810 Active Problem Chronic systolic congestive heart failure I50.22 Active Problem Coronary artery disease involving coronary bypass graft of [place] heart, angina presence unspecified I25.810 Active Problem Type 2 diabetes mellitus without complications E11.9 Active Problem 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
[2018-12-07 08:28] VITALS: BP 98/60
== END | disposition home or self-care (01) ==
LOC: OR 05:14
PROVIDERS: ATTEND Physical Medicine & Rehabilitation Pain Medicine
DX: M47.896 Other spondylosis, lumbar region (principal); M54.12 Radiculopathy, cervical region; G89.4 Chronic pain syndrome; B02.29 Other postherpetic nervous system involvement; M46.1 Sacroiliitis, not elsewhere classified; M54.16 Radiculopathy, lumbar region; I25.810 Atherosclerosis of coronary artery bypass graft(s) without angina pectoris; I10 Essential (primary) hypertension; E11.9 Type 2 diabetes mellitus without complications; Z88.8 Allergy status to other drugs, medicaments and biological substances; Z01.810 Encounter for preprocedural cardiovascular examination; Z01.812 Encounter for preprocedural laboratory examination; Z79.02 Long term (current) use of antithrombotics/antiplatelets; Z79.84 Long term (current) use of oral hypoglycemic drugs; Z95.1 Presence of aortocoronary bypass graft; Z95.810 Presence of automatic (implantable) cardiac defibrillator
CPT/HCPCS: 36415 ×2; 64493; 64494; 64495; 82948; 85025; 93005; J2001 ×2; J2250; J2370; J2704; J3301; Q9967; 77003

== ENCOUNTER → 2020-01-10 | Day surgery (SDC) | payer OTHER ==
[~2020-01-10] MED LIST changes: +DEXAMETHASONE SOD PHOS 10 MG/1 ML VIAL ONE; -FENTANYL CITRATE/PF 100MCG/2 ML INJ ONE; +FLOMAX0.4 MG PO; +LOSARTAN POTASS25 MG PO; +MAGNESIUM OXID400 MG PO; -MIDAZOLAM HCL 2 MG/2 ML VIAL ONE; -PHENYLEPHRINE HCL 1% 10 MG/ML VIAL ONE; +POTASSIUM CHLO20 ME1 PO; -TRIAMCINOLONE ACET 40 MG/ML VIAL ONE
[2020-01-10 07:42] VITALS: BP 90/51
== END | disposition home or self-care (01) ==
LOC: OR 05:03
PROVIDERS: ATTEND Physical Medicine & Rehabilitation Pain Medicine
DX: M54.16 Radiculopathy, lumbar region (principal); M47.896 Other spondylosis, lumbar region; M48.061 Spinal stenosis, lumbar region without neurogenic claudication; M51.26 Other intervertebral disc displacement, lumbar region; M54.12 Radiculopathy, cervical region; G89.4 Chronic pain syndrome; B02.29 Other postherpetic nervous system involvement; E11.9 Type 2 diabetes mellitus without complications; I25.810 Atherosclerosis of coronary artery bypass graft(s) without angina pectoris; I10 Essential (primary) hypertension; Z88.8 Allergy status to other drugs, medicaments and biological substances; Z79.02 Long term (current) use of antithrombotics/antiplatelets; Z79.84 Long term (current) use of oral hypoglycemic drugs; Z95.1 Presence of aortocoronary bypass graft; Z95.810 Presence of automatic (implantable) cardiac defibrillator
CPT/HCPCS: 36415; 64483; 64484 ×2; 82948; J1100; J2001 ×2; J2704; Q9967; 77003

== ENCOUNTER → 2020-02-11 | Outpatient (CLI) | payer MEDICARE ==
[~2020-02-11] MED LIST changes: -DEXAMETHASONE SOD PHOS 10 MG/1 ML VIAL ONE; -IOPAMIDOL 200 MG/ML 20 ML VIAL IT ONE; -LIDOCAINE HCL 1% 30ML-PF VIAL ONE; -LIDOCAINE HCL 2% LOCAL INJ 5 ML SDV VIAL INJ ONE; -PROPOFOL IV EMULSION 10 MG/ML 20 ML VIAL ONE
--- NOTE | 2020-02-11 10:40 | Diagnostic Imaging Report ---
Exam: Lumbar spine CT without IV contrast HISTORY: 74-year-old male with lumbar radiculopathy COMPARISON: Prior lumbar spine CT of 04/08/2014 is unavailable on the PACS at the time of dictation. TECHNIQUE: Axial CT images of the lumbar spine were obtained without contrast. Coronal and sagittal reconstructions obtained from the axial data. One or more of the following dose reduction techniques were used: Automated exposure control, adjustment of the mA and/or kV according to patient size, and/or utilization of iterative reconstruction technique. DISCUSSION: There are 5 nonrib-bearing lumbar vertebral bodies. Lumbar lordosis is preserved. Degenerative Grade 1 (5 mm) anterolisthesis of L4 and L5 and minimal retrolisthesis of T12 on L1. S-shaped thoracolumbar scoliosis with dominant lumbar levocurvature with apex on the right at L4-5. Soft tissues: No gross acute abnormalities. Moderate scattered calcified atherosclerosis throughout the abdominal aorta and iliac vessels. Dorsal paraspinal muscles: Moderate fatty-replaced atrophic changes of the lumbosacral junction. Vertebrae: No fracture or destructive lytic or blastic lesion.. Degenerative changes: T12-L1: Mildly degenerated disc. Minimal retrolisthesis of T12 on L1 with disc bulge/uncovered disc slightly asymmetric to the left with mild left foraminal stenosis. No significant canal or right foraminal stenosis. L1-L2: Mildly degenerated disc. Disc bulge with bilateral foraminal disc osteophyte complexes and mild facet arthrosis with mild left foraminal stenosis. No significant canal or right foraminal stenosis. L2-L3: Disc bulge, thickened ligamentum flavum and bilateral facet arthrosis with mild canal stenosis mild left foraminal stenosis. Patent right foramen. L3-L4: Mildly degenerated disc with vacuum phenomenon. Asymmetric left disc bulge, thickened ligamentum flavum and moderate bilateral facet arthrosis with moderate bilateral foraminal stenosis. No significant canal stenosis. L4-L5: Severely degenerated disc asymmetrically on the right along the concavity lumbar curvature with vacuum phenomenon. Grade 1 anterolisthesis of L4 and L5 with associated uncovered disc/disc bulge asymmetric to the right, thickened ligamentum flavum and severe bilateral facet arthrosis with moderate canal stenosis and severe right and moderate left foraminal stenosis. L5-S1: Mildly degenerated disc with vacuum phenomenon. Symmetric disc bulge with bilateral foraminal disc osteophyte complexes, mildly thickened ligamentum flavum and severe bilateral facet arthrosis with moderate bilateral foraminal stenosis (right greater than left). IMPRESSION: 1. Multilevel disc degeneration, worse/severe on the right at L4-L5 along the concavity of lumbar curvature. 2. Degenerative canal stenosis, mild at L2-L3 and moderate at L4-L5. 3. Degenerative foraminal stenosis, moderate bilaterally at L3-L4, severe right and moderate left at L4-L5 and moderate bilaterally at L5-S1. 4. Multilevel facet arthrosis, worse/severe at L4-L5 and at L5-S1. 5. Grade 1 degenerative anterolisthesis of L4 on L5. Signed by: Dr. Bairon Montejo M.D. on 02/11/2020 11:54 AM
== END ==
LOC: CT 09:08
PROVIDERS: ATTEND Physical Medicine & Rehabilitation Pain Medicine
DX: M54.16 Radiculopathy, lumbar region (principal)
CPT/HCPCS: 72131

== ENCOUNTER → 2020-05-29 | Day surgery (SDC) | payer MEDICARE ==
[2020-05-26 12:12] LABS: BASOPHILS # (AUTO) 0.1 (0.0-0.1); BASOPHILS % 1.1 % (0.0-1.0); EOSINOPHILS # (AUTO) 0.3 (0.0-0.4); EOSINOPHILS % 3.6 % (0.0-6.0); HEMATOCRIT 35.8 % (38.2-49.6); HEMOGLOBIN 11.8 g/dL (14.0-18.0); LYMPHOCYTES # (AUTO) 1.3 (1.0-3.2); MEAN CORPUSCULAR HEMOGLOBIN 30.6 pg (28-32); MONOCYTES % 11.6 % (4.4-11.3); NEUTROPHILS # (AUTO) 5.8 (2.1-6.9); NEUTROPHILS % 68.5 % (38.7-80.0); PLATELET COUNT 314 x10e3/uL (140-360); RED BLOOD COUNT 3.85 x10e6/uL (4.3-5.7); RED CELL DISTRIBUTION WIDTH 12.8 % (11.7-14.4)
[~2020-05-29] MED LIST changes: +BUPIVACAINE 0.25% 30ML SDV INJ ONE; +DEXAMETHASONE SOD PHOS 10 MG/1 ML VIAL ONE; +IOPAMIDOL 200 MG/ML 20 ML VIAL IT ONE; +LIDOCAINE HCL 1% 30ML-PF VIAL ONE
[2020-05-29 07:15] VITALS: BP 98/62
== END | disposition home or self-care (01) ==
LOC: OR 05:37
PROVIDERS: ATTEND Physical Medicine & Rehabilitation Pain Medicine
DX: M51.26 Other intervertebral disc displacement, lumbar region (principal); M47.816 Spondylosis without myelopathy or radiculopathy, lumbar region; M54.12 Radiculopathy, cervical region; M48.061 Spinal stenosis, lumbar region without neurogenic claudication; G89.4 Chronic pain syndrome; J45.909 Unspecified asthma, uncomplicated; I25.10 Atherosclerotic heart disease of native coronary artery without angina pectoris; I25.2 Old myocardial infarction; E11.9 Type 2 diabetes mellitus without complications; I27.20 Pulmonary hypertension, unspecified; I44.7 Left bundle-branch block, unspecified; Z88.1 Allergy status to other antibiotic agents; Z88.8 Allergy status to other drugs, medicaments and biological substances; Z01.810 Encounter for preprocedural cardiovascular examination; Z01.812 Encounter for preprocedural laboratory examination; Z11.59 Encounter for screening for other viral diseases; Z79.02 Long term (current) use of antithrombotics/antiplatelets; Z79.84 Long term (current) use of oral hypoglycemic drugs; Z95.810 Presence of automatic (implantable) cardiac defibrillator
CPT/HCPCS: 36415 ×2; 62323; 82948; 85025; 93005; J1100; J2001; Q9967; U0002; 77003